=== PATIENT | male | born 1955 | race Caucasian/White ===

== ENCOUNTER 2017-08-25 17:25 | Emergency (ER) | payer MEDICAID ==
[~2017-08-25] VITALS: Ht 177.8 cm; Wt 76.7 kg
[~2017-08-25 17:25] MED LIST: ASPIR 8181 MG PO; ASPIRIN325 PO; ASPIRIN81 M2 PO; CIPRO500 MG PO; DUONEB 2.5-0.5 M3 ML INH; FLOMAX0.4 MG PO; GLUCOPHAGE1000 MG PO; HUMALOG100 UNIT/1 SUBQ; LANTUS SUBQ; LANTUS100 UNIT/M SUBQ; LISINOPRIL10 MG PO; LOPRESSOR25 PO; LOPRESSOR50 PO; METFORMIN HCL500 MG PO; MIRALAX17 GM PO; NEURONTIN 300300 M1 PO; NORCO 5-325 TA1 EACH PO; NOVOLIN 70100 UNIT/5 SQ; PLAVIX 75 MG TA75 M1 PO; PLAVIX 75 MG TA75 MG PO; PREDNISONE 20 M20 M1 PO; PRINIVIL10 MG PO; PROTONIX40 M2 PO; SERTRALINE HCL50 MG PO; TRAMADOL 50 MG50 MG PO; ULTRAM 50MG TAB50 MG PO; XARELTO15 MG PO; ZOCOR20 MG PO; ZOFRAN ODT4 MG DISSOLVE; ZOFRAN ODT4 MG PO; ZOLOFT25 MG PO
[2017-08-25] MEDS ORDERED: BACTRIM DS TAB1 EACH PO (17:57)
[2017-08-25] MEDS ORDERED: FLOMAX0.4 MG PO (17:57)
[2017-08-25] MEDS ORDERED: PREDNISONE 20 M20 MG PO (18:00)
[2017-08-25] MEDS ORDERED: METOPROLOL TART25 MG PO (18:00)
[2017-08-25] MEDS ORDERED: ZOLOFT25 MG PO (18:00)
[2017-08-25 18:15] VITALS: BP 124/80
== END 2017-08-25 18:00 | disposition home or self-care (01) ==
LOC: M.ERS 17:25
DX: L30.9 Dermatitis, unspecified (principal)

== ENCOUNTER 2017-09-05 07:26 | Emergency (ER) | payer MEDICAID ==
[~2017-09-05] VITALS: Ht 177.8 cm; Wt 72.6 kg
[~2017-09-05 07:26] MED LIST changes: +BACTRIM DS TAB1 EACH PO; +METOPROLOL TART25 MG PO; +PREDNISONE 20 M20 MG PO
[2017-09-05] MEDS ORDERED: ASPIR 8181 MG PO (07:47)
[2017-09-05] MEDS ORDERED: LANTUS SOL100 UNIT/1 INJECTION (07:47)
[2017-09-05] MEDS ORDERED: DUONEB 2.5-0.5 M3 ML INH (08:03)
[2017-09-05] MEDS ORDERED: LOPRESSOR25 PO (08:03)
[2017-09-05] MEDS ORDERED: HUMALOG KW100 UNIT/1 SUBQ (08:03)
[2017-09-05] MEDS ORDERED: ASPIR 8181 M1 PO (08:03)
[2017-09-05 08:25] VITALS: BP 137/79
== END 2017-09-05 08:25 | disposition home or self-care (01) ==
LOC: M.ERS 07:26
DX: E11.9 Type 2 diabetes mellitus without complications (principal); J44.9 Chronic obstructive pulmonary disease, unspecified; I10 Essential (primary) hypertension; I25.10 Atherosclerotic heart disease of native coronary artery without angina pectoris; E78.00 Pure hypercholesterolemia, unspecified; F17.200 Nicotine dependence, unspecified, uncomplicated; Z95.5 Presence of coronary angioplasty implant and graft; Z88.5 Allergy status to narcotic agent; Z88.0 Allergy status to penicillin; Z91.041 Radiographic dye allergy status; Z91.040 Latex allergy status; Z88.8 Allergy status to other drugs, medicaments and biological substances; Z88.6 Allergy status to analgesic agent; Z79.4 Long term (current) use of insulin

== ENCOUNTER 2018-10-01 19:32 | Inpatient (IN) | payer MEDICAID ==
[~2018-10-01] VITALS: Ht 180.3 cm; Wt 71.7 kg
[~2018-10-01 19:32] MED LIST changes: +ASPIR 8181 M1 PO; +HUMALOG KW100 UNIT/1 SUBQ; +LANTUS SOL100 UNIT/1 INJECTION
[2018-10-01 19:35] VITALS: BP 154/64
[2018-10-01] MEDS ORDERED: VENTOLIN HFA 1818 GM INH (19:47)
[2018-10-01 19:55] LABS: ABSOLUTE BASOPHILS 0.2 thou/uL (0.0-0.2); ABSOLUTE EOSINOPHILS 0.3 thou/uL (0.0-0.7); ABSOLUTE LYMPHOCYTES 2.3 thou/uL (0.8-5.3); ABSOLUTE MONOCYTES 0.5 thou/uL (0.0-1.2); ABSOLUTE NEUTROPHILS 4.6 thou/uL (1.6-8.1); BASOPHILS 2.1 %; EOSINOPHILS 3.9 %; HEMATOCRIT 32.3 % (42.0-52.0); HEMOGLOBIN 10.1 gm/dL (14.0-18.0); LYMPHOCYTES 29.3 %; MCH 22.9 pg (26.0-34.0); MCHC 31.4 g/dL (28.0-37.0); MCV 73.1 fL (80.0-100.0); NUCLEATED RBCS 0 /100WBC; PLATELET COUNT* 473 thou/uL (150-400); POLYS 58.7 %; RBC 4.42 mil/uL (4.50-6.00); RDW-CV 18.4 % (10.5-14.5); WBC 7.8 thou/uL (4.0-11.0)
[2018-10-01 20:00] VITALS: BP 124/56
[2018-10-01 20:18] LABS: CALCIUM 8.7 mg/dL (8.5-10.1); CREATININE 0.9 mg/dL (0.6-1.3); POTASSIUM 4.6 mmol/L (3.5-5.1)
[2018-10-01 20:27] LABS: PROTIME 10.7 Seconds (9.20-11.50)
[2018-10-01 20:28] LABS: ALBUMIN 2.9 g/dL (3.4-5.0); TOTAL BILIRUBIN 0.2 mg/dL (<0.1-1.0); TOTAL PROTEIN 6.9 g/dL (6.4-8.2)
[2018-10-01 20:51] LABS: OVALOCYTES Occasional
[2018-10-01 20:52] LABS: ANISOCYTOSIS 1+
[2018-10-01 20:53] LABS: HYPOCHROMASIA 2+; MICROCYTES 1+
[2018-10-01 20:54] LABS: PLATELET ESTIMATE INCREASED
[2018-10-01 21:51] LABS: URINE BILIRUBIN NEGATIVE (Negative); URINE BLOOD NEGATIVE (Negative); URINE CLARITY CLEAR; URINE COLOR YELLOW; URINE GLUCOSE-RANDOM 3+ (Negative); URINE KETONES NEGATIVE (Negative); URINE LEUKOCYTES-REFLEX NEGATIVE (Negative); URINE NITRITE-REFLEX NEGATIVE (Negative); URINE PROTEIN NEGATIVE (Negative); URINE SPECIFIC GRAVITY <= 1.005 (1.005-1.030); URINE UROBILINOGEN 0.2 E.U./dl (0.2-1.0)
[2018-10-01 22:36] VITALS: BP 134/47
[2018-10-01 23:00] VITALS: BP 124/56
[2018-10-02 04:00] VITALS: BP 123/53
[2018-10-02 08:08] VITALS: BP 99/42
[2018-10-02 09:55] LABS: CHOLESTEROL 104 mg/dL (<200); HDL CHOLESTEROL 40 mg/dL (>40); LDL CHOLESTEROL 48 mg/dL (<100); SERUM ASSESSMENT Clear; TC:HDL 2.6 Ratio (Not establshd); TRIGLYCERIDE 84 mg/dL (<150); VLDL 17 mg/dL (<40)
--- NOTE | 2018-10-02 10:34 | EKG ---
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 : 1955 Requested By: Elida Naik Order Number: [id number] MD: Julio Olivia Measurements Intervals [place] Rate: 92 P: 88 AL: 187 QRS: 72 QRSD: 92 T: 88 QT: 391 QTc: 484 Interpretive Statements Sinus rhythm Consider anterior infarct Borderline repolarization abnormality Compared to ECG 02/19/2017 20:30:47 Myocardial infarct finding now present ST (T wave) deviation persists Electronically Signed On 10-02-2018 10:33:51 CDT by Julio Olivia [email or web address] <ELECTRONICALLY SIGNED> By: Julio Olivia MD, [facility] 10/02/18 1033 193 1936 Julio Olivia MD, [facility] /EPI
[2018-10-02 12:13] VITALS: BP 122/53
[2018-10-03 02:06] LABS: GLYCOHEMOGLOBIN (HGB A1C) 13.2 % (4.8-5.6)
== END 2018-10-02 13:27 | disposition left against medical advice (07) | DRG 302 ==
LOC: M.ERS 19:32 → M.TBA-ER 21:35 → M.2W 23:00
PROVIDERS: Emergency Medicine; Internal Medicine; Registered Nurse; ADMIT Internal Medicine
DX: I25.119 Atherosclerotic heart disease of native coronary artery with unspecified angina pectoris (principal); J96.01 Acute respiratory failure with hypoxia; J15.6 Pneumonia due to other Gram-negative bacteria; J44.0 Chronic obstructive pulmonary disease with (acute) lower respiratory infection; J44.1 Chronic obstructive pulmonary disease with (acute) exacerbation; I10 Essential (primary) hypertension; E78.5 Hyperlipidemia, unspecified; E11.65 Type 2 diabetes mellitus with hyperglycemia; F41.9 Anxiety disorder, unspecified; F17.290 Nicotine dependence, other tobacco product, uncomplicated; Z53.21 Procedure and treatment not carried out due to patient leaving prior to being seen by health care provider; Z91.14 Patient's other noncompliance with medication regimen; I25.2 Old myocardial infarction; Z95.5 Presence of coronary angioplasty implant and graft; Z98.1 Arthrodesis status; Z79.02 Long term (current) use of antithrombotics/antiplatelets; Z79.4 Long term (current) use of insulin; Z79.82 Long term (current) use of aspirin; Z79.899 Other long term (current) drug therapy; Z88.5 Allergy status to narcotic agent; Z88.0 Allergy status to penicillin; Z88.8 Allergy status to other drugs, medicaments and biological substances; Z91.041 Radiographic dye allergy status; Z91.040 Latex allergy status

== ENCOUNTER 2018-10-04 17:33 | Emergency (ER) | payer MEDICAID ==
[~2018-10-04] VITALS: Ht 172.7 cm; Wt 71.2 kg
[~2018-10-04 17:33] MED LIST changes: +VENTOLIN HFA 1818 GM INH
[2018-10-04] MEDS ORDERED: TOPROL XL25 MG PO (17:44)
[2018-10-04 18:31] LABS: ABSOLUTE EOSINOPHILS 0.2 thou/uL (0.0-0.7); ABSOLUTE LYMPHOCYTES 1.8 thou/uL (0.8-5.3); ABSOLUTE MONOCYTES 0.3 thou/uL (0.0-1.2); ABSOLUTE NEUTROPHILS 5.1 thou/uL (1.6-8.1); BASOPHILS 0.2 %; EOSINOPHILS 3.1 %; HEMOGLOBIN 9.4 gm/dL (14.0-18.0); LYMPHOCYTES 24.1 %; MCH 22.8 pg (26.0-34.0); MCHC 31.4 g/dL (28.0-37.0); MCV 72.6 fL (80.0-100.0); MONOCYTES 4.4 %; MPV 7.7 fl. (7.2-11.1); NUCLEATED RBCS 0 /100WBC; PLATELET COUNT* 468 thou/uL (150-400); POLYS 68.2 %; RBC 4.13 mil/uL (4.50-6.00); RDW-CV 18.1 % (10.5-14.5); WBC 7.4 thou/uL (4.0-11.0)
[2018-10-04 18:42] LABS: ANION GAP 10 mmol/L (7-16); BUN 8 mg/dL (7-18); CALCIUM 8.5 mg/dL (8.5-10.1); CHLORIDE 99 mmol/L (98-107); CO2 27 mmol/L (21-32); CREATININE 0.9 mg/dL (0.6-1.3); GLUCOSE 497 mg/dL (70-99); SODIUM 136 mmol/L (136-145)
[2018-10-04 18:47] LABS: PROTIME 10.6 Seconds (9.20-11.50)
[2018-10-04 18:54] LABS: ALBUMIN 2.9 g/dL (3.4-5.0); ALKALINE PHOSPHATASE 114 U/L (46-116); LIPASE 95 U/L (73-393); NT-PRO BRAIN NAT PEPTIDE 2000 pg/mL (<300); SGOT 7 U/L (15-37); SGPT 17 U/L (30-65); TOTAL BILIRUBIN 0.3 mg/dL (<0.1-1.0); TOTAL PROTEIN 6.6 g/dL (6.4-8.2); TROPONIN-I LEVEL <0.06 ng/mL (<0.06)
[2018-10-04 18:57] LABS: OVALOCYTES 1+
[2018-10-04 18:58] LABS: ANISOCYTOSIS 1+; MICROCYTES 1+; PLATELET ESTIMATE INCREASED
[2018-10-04 18:59] LABS: POIKILOCYTOSIS 1+
[2018-10-04 19:00] LABS: HYPOCHROMASIA 2+
[2018-10-04] MEDS ORDERED: PREDNISONE 20 M20 M1 PO (19:19)
[2018-10-04] MEDS ORDERED: LEVAQUIN 500 M500 MG PO (19:19)
[2018-10-04] MEDS ORDERED: PERCOCET 5-3251 EACH PO (19:19)
[2018-10-04 20:04] VITALS: BP 142/59
--- NOTE | 2018-10-06 11:37 | EKG ---
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: NATALEE : 1955 Requested By: Sherly Cruz Order Number: [id number] MD: Leonardo Littlejohn Measurements Intervals [place] Rate: 100 P: 102 IN: 185 QRS: 58 QRSD: 82 T: 186 QT: 321 QTc: 414 Interpretive Statements Sinus tachycardia Ventricular premature complex Nonspecific repol abnormality, lateral leads Compared to ECG 10/01/2018 19:36:43 Ventricular premature complex(es) now present Sinus rhythm no longer present Myocardial infarct finding no longer present Electronically Signed On 10-06-2018 11:37:14 CDT by Leonardo Littlejohn [email or web address] <ELECTRONICALLY SIGNED> By: Leonardo Littlejohn MD, FAC 10/06/18 1137 1737 173 Leonardo Littlejohn MD, [facility] /EPI
== END 2018-10-04 20:06 | disposition home or self-care (01) ==
LOC: M.ERS 17:33
PROVIDERS: Personal Emergency Response Attendant
DX: J18.9 Pneumonia, unspecified organism (principal); F17.220 Nicotine dependence, chewing tobacco, uncomplicated; I10 Essential (primary) hypertension; E11.9 Type 2 diabetes mellitus without complications; E78.00 Pure hypercholesterolemia, unspecified; I25.10 Atherosclerotic heart disease of native coronary artery without angina pectoris; E78.5 Hyperlipidemia, unspecified; J44.9 Chronic obstructive pulmonary disease, unspecified; Z79.4 Long term (current) use of insulin; Z88.8 Allergy status to other drugs, medicaments and biological substances; Z88.5 Allergy status to narcotic agent; Z91.041 Radiographic dye allergy status; Z88.4 Allergy status to anesthetic agent; Z88.6 Allergy status to analgesic agent; Z91.040 Latex allergy status; Z88.0 Allergy status to penicillin; Z91.048 Other nonmedicinal substance allergy status

== ENCOUNTER 2018-10-31 17:12 | Inpatient (IN) | payer MEDICAID ==
[~2018-10-31] VITALS: Ht 175.3 cm; Wt 74.8 kg
[~2018-10-31 17:12] MED LIST changes: +LEVAQUIN 500 M500 MG PO; +PERCOCET 5-3251 EACH PO; +TOPROL XL25 MG PO
[2018-10-31 17:16] VITALS: BP 143/78
[2018-10-31] MEDS ORDERED: LIPITOR10 MG PO (17:21)
[2018-10-31 17:47] LABS: ABSOLUTE BASOPHILS 0.1 thou/uL (0.0-0.2); ABSOLUTE EOSINOPHILS 0.2 thou/uL (0.0-0.7); ABSOLUTE LYMPHOCYTES 1.7 thou/uL (0.8-5.3); ABSOLUTE MONOCYTES 0.4 thou/uL (0.0-1.2); ABSOLUTE NEUTROPHILS 3.7 thou/uL (1.6-8.1); BASOPHILS 1.4 %; EOSINOPHILS 2.6 %; HEMATOCRIT 34.1 % (42.0-52.0); HEMOGLOBIN 10.3 gm/dL (14.0-18.0); LYMPHOCYTES 28.7 %; MCH 21.5 pg (26.0-34.0); MCHC 30.2 g/dL (28.0-37.0); MCV 71.2 fL (80.0-100.0); MONOCYTES 5.8 %; MPV 7.9 fl. (7.2-11.1); NUCLEATED RBCS 0 /100WBC; PLATELET COUNT* 523 thou/uL (150-400); POLYS 61.5 %; RBC 4.79 mil/uL (4.50-6.00); RDW-CV 18.9 % (10.5-14.5); WBC 6.1 thou/uL (4.0-11.0)
[2018-10-31 18:03] LABS: ANION GAP 7 mmol/L (7-16); BUN 6 mg/dL (7-18); CALCIUM 8.7 mg/dL (8.5-10.1); CHLORIDE 94 mmol/L (98-107); CO2 29 mmol/L (21-32); POTASSIUM 4.4 mmol/L (3.5-5.1); SODIUM 130 mmol/L (136-145)
[2018-10-31 18:09] LABS: GLUCOSE 668 mg/dL (70-99)
[2018-10-31 18:20] LABS: ALBUMIN 3.3 g/dL (3.4-5.0); ALKALINE PHOSPHATASE 146 U/L (46-116); LIPASE 140 U/L (73-393); MAGNESIUM 1.7 mg/dL (1.8-2.4); NT-PRO BRAIN NAT PEPTIDE 1267 pg/mL (<300); SGOT 8 U/L (15-37); SGPT 20 U/L (30-65); TOTAL BILIRUBIN 0.4 mg/dL (<0.1-1.0); TROPONIN-I LEVEL <0.06 ng/mL (<0.06)
[2018-10-31 18:32] LABS: BE 0.8 mmol/L (-2 to +3); PCO2 46.9 mmHg (35.0-45.0); PO2 73.7 mmHg (75.0-100.0); pH 7.369 (7.340-7.450)
[2018-10-31] MEDS ORDERED: FLOMAX0.4 MG PO (18:39)
[2018-10-31] MEDS ORDERED: ASPIRIN81 M2 PO (18:40)
[2018-10-31 19:06] LABS: MICROCYTES 2+; OVALOCYTES Occasional
[2018-10-31 19:07] LABS: ANISOCYTOSIS 1+
[2018-10-31 19:08] LABS: HYPOCHROMASIA 1+; PLATELET ESTIMATE INCREASED
[2018-10-31 20:11] VITALS: BP 122/34
[2018-10-31 20:40] VITALS: BP 118/68
[2018-11-01 01:04] VITALS: BP 113/72
--- NOTE | 2018-11-01 01:47 | NUR ---
RECEIVED PHONECALL FROM AFTER HOURS RADIOLOGY SERVICE, RESULTS INTERPRETED AND SENT IN VIA FAX BY JEREMIE. DR SOSA NOTIFIED OF RESULTS.
[2018-11-01 04:17] VITALS: BP 121/52
[2018-11-01 04:56] LABS: ALBUMIN 2.9 g/dL (3.4-5.0); ALKALINE PHOSPHATASE 124 U/L (46-116); ANION GAP 5 mmol/L (7-16); BUN 7 mg/dL (7-18); CALCIUM 8.2 mg/dL (8.5-10.1); CHLORIDE 103 mmol/L (98-107); CHOLESTEROL 90 mg/dL (<200); CO2 29 mmol/L (21-32); CREATININE 0.8 mg/dL (0.6-1.3); GLUCOSE 244 mg/dL (70-99); HDL CHOLESTEROL 33 mg/dL (>40); LDL CHOLESTEROL 42 mg/dL (<100); POTASSIUM 4.2 mmol/L (3.5-5.1); SGOT 11 U/L (15-37); SGPT 16 U/L (30-65); SODIUM 137 mmol/L (136-145); TC:HDL 2.7 Ratio (Not establshd); TOTAL BILIRUBIN 0.3 mg/dL (<0.1-1.0); TOTAL PROTEIN 6.4 g/dL (6.4-8.2); TRIGLYCERIDE 75 mg/dL (<150); VLDL 15 mg/dL (<40)
[2018-11-01 04:57] LABS: SERUM ASSESSMENT Clear
--- NOTE | 2018-11-01 07:52 | NUR ---
PT RECIEVED FROM ED. ALERT AND ORIENTED X4. CALL LIGHT WITHIN REACH AND BED IN LOW POSITION. SAT MAINTAINED IN O2. C/O PAIN, MEDICATION GIVEN PER EMAR. PT HAD LFT SIDED WEAKNESS, PHYSICIAN INFORMED, ORDERS RECIEVED AND IMPLEMENTED. NIH DONE AND CHARTED. EKG CHANGES NOTED, PHYSICIAN NOTIFIED NO ORDERS RECIEVED. HOURLY ROUNDING DONE FOR PT SAFETY.
[2018-11-01 08:02] VITALS: BP 96/57
--- NOTE | 2018-11-01 08:58 | EKG ---
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: Trever MILLER : 1955 Requested By: Kira Sepulveda Order Number: [id number] Helen MD: Austin Jones Measurements Intervals [place] Rate: 107 P: 87 NV: 184 QRS: 80 QRSD: 93 T: 42 QT: 344 QTc: 459 Interpretive Statements Sinus tachycardia Nonspecific repol abnormality, lateral leads Compared to ECG 10/04/2018 17:37:09 Ventricular premature complex(es) no longer present Electronically Signed On 11-01-2018 8:57:49 CDT by Austin Jones [email or web address] <ELECTRONICALLY SIGNED> By: Austin Jones MD, [facility] 11/01/18 0857 1716 1716 Austin Jones MD, [facility] /EPI
--- NOTE | 2018-11-01 09:00 | EKG ---
[place] [address] ELECTROCARDIOGRAM REPORT Name: KAMRYN MCNALLY Room: [address] ADM IN .R.#: [id number] Admission: 10/31/18 Attend Phys: Roger Vann Discharge: Date of : 53 Report #: [id number] THIS REPORT FOR: //name// [facility] Test Date: 2018-10-31 Test Time: 22:16:10 Pat Name: KAMRYN MCNALLY Department: Room: [facility] Gender: Mop Maker: ALFRED : 1955 Requested By: Reno Chiang Order Number: [id number] MD: Austin Jones Measurements Intervals [place] Rate: 87 P: 75 DC: 179 QRS: 73 QRSD: 93 T: 160 QT: 393 QTc: 473 Interpretive Statements Sinus rhythm Borderline repolarization abnormality Baseline wander in lead(s) III,V1 Electronically Signed On 11-01-2018 9:00:28 CDT by Austin Jones [email or web address] <ELECTRONICALLY SIGNED> By: Austin Jones MD, [facility] 11/01/18 09 15 15 Austin Jones MD, FACC /EPI
--- NOTE | 2018-11-01 09:02 | EKG ---
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
--- NOTE | 2018-11-01 10:28 | NUR ---
PT LEFT AMA AT 0905 THIS AM. ATTEMPTED TO EDUCATE PT ON NEED FOR HOSPITALIZATION AND DANGERS OF LEAVING INCLUDING WORSONING OF SYMPTOMS OF STROKE AND BLOOD GLUCOSE AND THE POSSIBILITY OF R/T IT. PT WAS NOT WILLING TO LISTEN AND INSISTED HE WAS LEAVING. CHARGE NURSE TAYLOR NOTIFIED AND SPOKE WITH PT R/T DANGERS OF LEAVING ALSO. DR COLLAZO CAME TO TALK WITH PT BUT HE REFUSED TO STAY TO SPEAK WITH HIM. IV ACCESS X2 REMOVED. PT LEFT AMBULATORY STATING THAT HE HAD A RIDE. ESCORTED TO MAIN ENTRANCE BY DENICE ROSALES.
== END 2018-11-01 09:00 | disposition left against medical advice (07) | DRG 313 ==
LOC: M.ERS 17:12 → M.TBA-ER 18:33 → M.2W 20:21
PROVIDERS: Emergency Medicine Emergency Medical Services; ADMIT Internal Medicine
DX: R07.9 Chest pain, unspecified (principal); J44.9 Chronic obstructive pulmonary disease, unspecified; E11.9 Type 2 diabetes mellitus without complications; E78.00 Pure hypercholesterolemia, unspecified; I25.10 Atherosclerotic heart disease of native coronary artery without angina pectoris; Z53.21 Procedure and treatment not carried out due to patient leaving prior to being seen by health care provider; E78.5 Hyperlipidemia, unspecified; I10 Essential (primary) hypertension; I25.2 Old myocardial infarction; Z95.5 Presence of coronary angioplasty implant and graft; Z88.0 Allergy status to penicillin; Z88.8 Allergy status to other drugs, medicaments and biological substances; Z88.6 Allergy status to analgesic agent; Z91.041 Radiographic dye allergy status; Z91.040 Latex allergy status

== ENCOUNTER 2018-12-02 19:20 | Inpatient (IN) | payer MEDICAID ==
[~2018-12-02] VITALS: Ht 177.8 cm; Wt 70.2 kg
--- NOTE | ~2018-12-02 | CON ---
[address] [address] CONSULTATION Name: KAMRYN MCNALLY Room: [address] ADM IN M.R.#: [id number] Admission: 12/02/18 Attend Phys: Kamryn Wolfe MD Discharge: Date of : 53 Report #: [id number] THIS REPORT FOR: //name// CC: KARLI physician/PCP Kamryn Wolfe HISTORY OF PRESENT ILLNESS: A 62-year-old male admitted through the ED for chest pain, radiating to the left arm. Podiatry was consulted for possible osteomyelitis to the left great toe with concomitant ulceration to the lateral fifth MTP joint. Recent catheterization found to have patent cardiac stents. Recent CTAs of neck show greater than 90% stenosis of the left ICA. Arterial Doppler ultrasound shows SFA disease with roughly 50% stenosis bilaterally. He relates significant pain to the right foot, denies injury. He has had prior triple arthrodesis with 3 retained compression honey. Denies fevers, chills, nausea or malaise. Continues to have some midsternal chest pain. He smokes a pipe. I reviewed his medications and allergies in the EMR. He is on parenteral vancomycin and ceftriaxone with good tolerance. LABORATORY DATA: WBC 10.9, RBC 3.91, hemoglobin 8.1, hematocrit 26.5, and platelets 384. BUN 19, creatinine 0.8, and glucose 305. PHYSICAL EXAMINATION: Temperature 98.1, pulse 84, respirations 18, and blood pressure 87/53. The left great toe and distal forefoot is exquisitely painful to the touch. The nail is missing from the left hallux with no visible open wound to the nail bed or distal hallux. No expressible drainage from the nail bed, no granulation or violation of the epithelium. There is full thickness ulceration to the left lateral fifth MTP, roughly 3 cm in diameter with red granular base with some overlying slough and low grade inflammation to the wound periphery. No exposed bone or tendon. Faintly palpable dorsalis pedis and posterior tibial pulses bilaterally. No pallor, cyanosis, gangrene or signs of acute ischemia. IMAGING DATA: I reviewed x-rays, which reveal longitudinal radiolucency through the distal phalanx with no osteolysis. IMPRESSION: Type 2 diabetes mellitus with peripheral arterial disease, carotid stenosis, diabetic foot ulceration, possible osteomyelitis to the great toe. PLAN: I do not recommend any surgical intervention at this point. The patient requires further evaluation and treatment of this carotid artery disease as well as both lower extremities. I am not convinced he has osteomyelitis to the great toe, although I would recommend MRI in near future for more information. At present, I recommend daily wound care to the left [place] [address] CONSULTATION Name: KAMRYN MCNALLY Room: [address] IN M.R.#: [id number] Admission: 12/02/18 Attend Phys: Kamryn Wolfe MD Discharge: Date of : 53 Report #: [id number] Casie Nunez ABD and Mónica victor. He may ambulate in a surgical shoe for short distances and transfers as tolerated. By: 1738 [id number] Israel DPM /nt
[~2018-12-02 19:20] MED LIST changes: +LIPITOR10 MG PO
[2018-12-02 19:23] VITALS: BP 123/54
[2018-12-02 20:12] LABS: ABSOLUTE BASOPHILS 0.1 thou/uL (0.0-0.2); ABSOLUTE EOSINOPHILS 0.4 thou/uL (0.0-0.7); ABSOLUTE LYMPHOCYTES 1.8 thou/uL (0.8-5.3); ABSOLUTE MONOCYTES 0.5 thou/uL (0.0-1.2); ABSOLUTE NEUTROPHILS 2.8 thou/uL (1.6-8.1); BASOPHILS 1.5 %; EOSINOPHILS 7.2 %; HEMATOCRIT 28.8 % (42.0-52.0); HEMOGLOBIN 8.6 gm/dL (14.0-18.0); LYMPHOCYTES 32.4 %; MCH 20.4 pg (26.0-34.0); MCV 68.1 fL (80.0-100.0); MONOCYTES 8.9 %; MPV 7.2 fl. (7.2-11.1); NUCLEATED RBCS 0 /100WBC; PLATELET COUNT* 420 thou/uL (150-400); RBC 4.23 mil/uL (4.50-6.00); RDW-CV 19.3 % (10.5-14.5); WBC 5.7 thou/uL (4.0-11.0)
[2018-12-02 20:26] LABS: APTT 23.7 Seconds (25.0-31.3); PROTIME 10.3 Seconds (9.20-11.50)
[2018-12-02 20:29] LABS: CALCIUM 8.2 mg/dL (8.5-10.1); CREATININE 0.8 mg/dL (0.6-1.3); POTASSIUM 4.2 mmol/L (3.5-5.1)
[2018-12-02 20:37] LABS: ALBUMIN 2.8 g/dL (3.4-5.0); CK-MB MASS 4.9 ng/mL (<0.5-3.6); MAGNESIUM 1.6 mg/dL (1.8-2.4); TOTAL BILIRUBIN 0.2 mg/dL (<0.1-1.0); TOTAL PROTEIN 6.4 g/dL (6.4-8.2); TROPONIN-I LEVEL 0.06 ng/mL (<0.06)
[2018-12-02 20:44] LABS: OVALOCYTES 1+; PLATELET ESTIMATE ADEQUATE
[2018-12-02 20:45] LABS: HYPOCHROMASIA 2+
[2018-12-02 20:46] LABS: ANISOCYTOSIS 1+; MICROCYTES 3+
[2018-12-02 22:13] VITALS: BP 109/68
[2018-12-03] VITALS (7 sets, daily range): BP systolic 99–136; BP diastolic 45–88
--- NOTE | 2018-12-03 06:58 | NUR ---
PT TO FLOOR APPROX 2220 AND ASSUMED CARE, ASSESSMENT COMPLETED CHARTED, APPROX 0430 PT COMPLAINED OF UNCONTROLLABLE CHEST PAIN, EKG DONE AND TROP DRAW, NEW ORDERS RECIEVED. PARTIAL RELIEF NOTED WITH PT. SEE MAR. SEE CHARTING. FALL PRECAUTIONS IN PLACE. HOURLY ROUNDING FOR SAFETY.
[2018-12-03 10:05] LABS: CALCIUM 8.8 mg/dL (8.5-10.1); POTASSIUM 4.8 mmol/L (3.5-5.1)
--- NOTE | 2018-12-03 10:59 | EKG ---
[place] [address] ELECTROCARDIOGRAM REPORT Name: KAMRYN MCNALLY Room: [address] ADM IN .R.#: [id number] Admission: 12/02/18 Attend Phys: Kamryn Wolfe MD Discharge: Date of : 53 Report #: [id number] THIS REPORT FOR: //name// [facility] ED Test Date: 2018-12-02 Test Time: 19:26:05 Pat Name: KAMRYN MCNALLY Department: Room: [facility] Gender: M Floor Director: MO : 1955 Requested By: Presley Bahena Order Number: [id number] MD: Nam Mora Measurements Intervals [place] Rate: 98 P: 83 [place]: 191 QRS: -35 QRSD: 137 T: 92 QT: 395 QTc: 505 Interpretive Statements Sinus rhythm Multiple ventricular premature complexes Left bundle-branch block Compared to ECG 11/01/2018 06:18:37 No significant changes noted Electronically Signed On 12-03-2018 10:59:39 CDT by Nam Mora [email or web address] <ELECTRONICALLY SIGNED> By: Nam Mora MD, [facility] 12/03/18 1059 1926 25 Nam Mora MD, [facility] /EPI
--- NOTE | 2018-12-03 11:01 | EKG ---
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[employer] : 1955 Requested By: Kamryn Wolfe Order Number: [id number] Helen MD: Nam Mora Measurements Intervals [place] Rate: 102 P: 92 CT: 43 QRS: 26 QRSD: 149 T: 156 QT: 410 QTc: 535 Interpretive Statements Sinus tachycardia Ventricular trigeminy Left bundle-branch block Compared to ECG 11/01/2018 06:18:37 Sinus rhythm no longer present Electronically Signed On 12-03-2018 11:01:43 CDT by Nam Mora [email or web address] <ELECTRONICALLY SIGNED> By: Nam Mora MD, [facility] 12/03/18 1101 0501 0501 Nam Mora MD, [facility] /EPI
--- NOTE | 2018-12-03 11:13 | NUR ---
ASSUMED PT CARE AT 0800, AOX4, IMPULSIVE. O2 SAT 90'S 2L NC. TRAC[address] ST,BBB ON TELE. PT COMPLAINS OF CHEST PAIN. MEDS GIVEN. PT BLOOD SUGAR CRITICAL, INSULIN GIVEN, FOR ACCU CHECK. PT NPO FOR HEART CATH. PT HAS WOUND ON L TOES, WOUND NURSE CONSULTED. C/D/I. VSS, AM ASSESSMENT CHARTED. HOURLY ROUNDING. CALL LIGHT WITHIN REACH. WILL CONTINUE TO MONITOR.
--- NOTE | 2018-12-03 11:15 | NUR ---
BRICK CHIMNEY BUILDER INFORMED OF THE NEED TO SEND A REFERRAL TO [facility]. D/C DAVID ATTEMPTED TO CONTACT ADMISSIONS AT [facility] AND LEFT A MESSAGE FOR ROSALINDA TO RETURN CALL TO DISCUSS ABILITY TO ACCEPT THE PATIENT. D/C POWER TECHNICIAN FAXED PATIENT'S FACESHEET, AND CLINICAL INFO TO ROSALINDA. NO PT/OT NOTES AVAILABLE TO SEND AT THIS TIME. CM WILL REMAIN AVAILABLE TO ASSIST AND FOLLOW NEEDED.
--- NOTE | 2018-12-03 11:22 | NUR ---
WOUND CARE NOTE: PT WAS SEEN TO ADDRESS WOUNDS TO LEFT FOOT. PT CURRENTLY BEING SEEN FOR CHEST PAIN. HE IS TO HAVE A CARDIAC CATH LATER TODAY. HE HAS A HX OF DIABETES, VASULAR DISEASE, PERIPHERAL NEUROPATHY, PNA. PT HAD BLOOD SUGARS >500 THIS AM AND IS BEING TREATED WITH INSULIN. PT HAS MULTIPLE DFU'S TO THE LEFT FOOT. ON THE OUTER PART OF THE FOOT THERE IS A FULL THICKNESS WOUND THAT MEASURES 1.7X1.1X0.2CM. THERE IS DRIED SLOUGH COVERING THE ENTIRE WOUND BED. THE MARLEEN WOUND IS DRY AND THE EDGES ARE WELL APPROXIMATED. THE 2ND TOE WOUND MEASURES 104X0.6X0.0CM. THERE IS DRIED SLOUGH AND SCABBING PRESENT. THE MARLEEN WOUND IS SLIGHTLY RED AND WARM TO THE TOUCH. THE 4TH TOE WOUND MEASURES 1.1X0.9X0.0 WITH DRIED SLOUGH AND THE MARLEEN WOUND IS SLIGHTLY RED AND WARM TO THE TOUCH. THE 5TH TOE WOUND MEASURES 1.1X1.0X0.0 WITH LARGE AMOUNT OF DRIED SLOUGH MATERIAL. THERE IS NO DRAINAGE NOTED. THE FOOT IS SLIGHTY SWOLLEN. THERE ARE 2 AREAS TO THE HEEL THAT ARE CALLUSED POSSIBLE FROM A HEALED DFU.BILAT LEGS HAVE MULTIPLE HEALING SCABS. THE PT STATES HE SITS OUTSIDE A LOT. AND THEN HE SCRATCHES AT HIS LEGS CAUSING SCABS. THESE DO APPEAR TO BE BUG BITES. THE PT DID C/O PAIN TO THE TOUCH. HE STATES HE WAS GOING TO [facility] UNTIL ABOUT 4 OR MORE MONTHS AGO. PT HAS NOT HAD ANY WC AT HOME FOR THE FOOT. 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 HE STATES IT SHOWED "INFECTION IN THE BONE" AND THAT HIS DRS TOLD HIM HE NEEDED IT "AMPUTATED". I ASKED THE PT IF HE WOULD BE WILLING TO HAVE OUR PODITRIST LOOK AT IT WHILE HE IS HERE AND HE WAS WILLING TO DO SO. DR MALDONADO NOTIFIED OF MY FINDINGS AND THE DISCUSSION WITH THE PT. NO CONSULT PLACED AT THIS TIME. ALL WOUNDS TO LEFT FOOT WASHED WITH WOUND CLEANSER, PATTED DRY. IN THE OUTER ASPECT OF THE FOOT AQUACEL AG PLACED WITH BOARDERED FOAM COVERING IT. THE 2ND, 4TH AND 5TH TOES COVERED WITH POTIFOAM AG. THE FOOT WAS COVERED WITH KERLIX AND NATALEE BANDAGE. BILAT LEGS WASHED WITH WOUND CLEANSER AND BARRIOR CREAM APPLIED TO BOTH. PT TOLEREATED THIS WELL WITH SMALL AMOUNT OF PAIN TO THE LEFT FOOT. PT EDUCATED TO KEEP LEFT FOOT ELEVATED ON A PILLOW. PT VERBALIZED UNDERSTANDING.
--- NOTE | 2018-12-03 11:47 | NUR ---
Pt is A&O but forgetful. Resides at home alone, states that he does not have a a support sx. Pt states that he has been struggling at home, unable to complete ADLs and IADLs. Pt wants to dc to a LTC facility, Pt states that he would like to dc to [facility], Pt states that he has been there before. Pt has a walker and cane at home. No home o2. DC land planner to contact [facility] to determine ability to accept. Pt did not want to discuss an alternate LTC, to be contacted if [facility] cannot accept. CM following.
--- NOTE | 2018-12-03 16:45 | CARD ---
[address] [address] CARDIAC CATH REPORT Name: KAMRYN MCNALLY Room: [address] IN .R.#: [id number] Admission: 12/02/18 Attend Phys: Kamryn Wolfe MD Discharge: Date of : 53 Report #: [id number] THIS REPORT FOR: //name// APPROVED REPORT Study performed: 12/03/2018 14:34:34 Patient Details The patient is a 62 year-old male Event Personnel Nam Mora Industrial Welder, Diane Azar RN RN, Julissa Pastor RN RN, Jayson Dias (Yani) Tom Chamberlain Brittany RN Monitor, Joi Johnston RTR Monitor Procedures Performed Art Access - R femoral artery* Procedure Narrative The patient was brought electively to the Cardiac Catheterization Laboratory and was prepped and draped in a sterile manner. A 6fr Ultimum Sheath sheath was inserted into the . Coronary angiography was performed using coronary diagnostic catheters. The right coronary system was accessed and visualized with a JR 4 6fr. catheter. The left coronary system was accessed and visualized with a JL 4 6fr. catheter. The left ventricle was accessed and visualized with a PC: Angled Pig 6fr catheter. The patient tolerated the procedure well and there were no complications associated with the procedure. Intraoperative Conscious Sedation Sedation start time: 1536 Case end Time: 1545 Versed 2 mg Dose: 827.09 mGy Contrast Type and Amount: Omnipaque 125 ml Coronary Angiography The patient's coronary anatomy is right dominant. Diagnostic Cath Left Main The left main is short and normal and trifurcates into an LAD, intermediate ramus and circumflex coronary arteries. LAD The left anterior descending coronary artery is 50% narrowed proximally and 40% narrowed in the midportion. [place] [address] CARDIAC CATH REPORT Name: KAMRYN MCNALLY Room: [address] IN .R.#: [id number] Admission: 12/02/18 Attend Phys: Kamryn Wolfe MD Discharge: Date of : 53 Report #: [id number] free of significant disease. Diagonal 1 The first diagonal branch is a large branched vessel with 20% plaquing proximally. Diagonal 2 The second diagonal branch is small in caliber and normal. Circumflex The circumflex coronary artery has widely patent stents from the proximal to midportion. Distally the circumflex is 40% narrowed. OM1 A fairly distal first obtuse marginal branch is normal. OM2 The more distal second obtuse marginal branch was normal. Right Coronary The right coronary artery has a widely patent stent proximally. The mid and distal vessel are free of significant disease. R PDA The PDA is free of significant disease. RPLV A moderate size branch and PDA is free of significant disease. Ramus The ramus intermedius has a widely patent stents in the ostial and proximal portion. The mid and distal vessel is free of significant disease. There is proximal 10% narrowing distally. A small branch of the radius has a 90% ostial stenosis. The ramus has circumflex/obtuse marginal distribution. Hemodynamics The aortic pressure is 118/57 mmHg with a mean of 83 mmHg. The left ventricular pressure is 115/15 mmHg with a mean of mmHg. The left ventricular end diastolic pressure is 33 mmHg. Conclusion 1. Three-vessel coronary artery disease as outlined above. 2. Widely patent stents in the ostial to proximal ramus, ostial to mid circumflex and proximal right coronary arteries. 3. 50% proximal and 40% mid LAD narrowing. 4. 40% distal circumflex narrowing. 5. Elevated left ventricular end-diastolic pressure consistent with acute diastolic heart failure. 6. Normal left ventricular systolic function. Recommendations 1. Continue medical management and aggressive risk factor modification. 2. Continue treatment for diastolic heart failure. <ELECTRONICALLY SIGNED> By: Nam Mora MD, [facility] 12/03/18 1644 1644 1644Micaddy Mora MD, FACC /INF
--- NOTE | 2018-12-03 18:31 | NUR ---
PT HAD HEART CATH TODAY. R GROIN D/C/I. PT DENIES PAIN AT THIS TIME. PT FOR NM LUNG SCAN VQ, US BILATERAL LOWER EXTREMITY, FOOT XRAY AND CHEST XRAY. PT O2 DROP TO 80'S WHEN SLEEP. O2 ADJUST TO 3L. PT IMPULSIVE. ANTIBIOTIC STARTED. L FOOT WOUND C/D/I. BED ALARM. CALL LIGHT WITHIN REACH. WILL CONTINUE TO MONITOR.
[2018-12-04 00:03] VITALS: BP 100/60
[2018-12-04 03:12] LABS: GLYCOHEMOGLOBIN (HGB A1C) 15.2 % (4.8-5.6)
[2018-12-04 04:00] VITALS: BP 109/64
[2018-12-04 05:44] LABS: CALCIUM 8.4 mg/dL (8.5-10.1); CREATININE 0.8 mg/dL (0.6-1.3); MAGNESIUM 1.9 mg/dL (1.8-2.4); POTASSIUM 4.6 mmol/L (3.5-5.1)
[2018-12-04 05:49] LABS: ABSOLUTE BASOPHILS 0.1 thou/uL (0.0-0.2); ABSOLUTE MONOCYTES 0.6 thou/uL (0.0-1.2); ABSOLUTE NEUTROPHILS 8.2 thou/uL (1.6-8.1); BASOPHILS 0.5 %; HEMATOCRIT 26.5 % (42.0-52.0); HEMOGLOBIN 8.1 gm/dL (14.0-18.0); LYMPHOCYTES 18.3 %; MCH 20.8 pg (26.0-34.0); MCHC 30.7 g/dL (28.0-37.0); MCV 67.8 fL (80.0-100.0); MONOCYTES 5.6 %; MPV 7.9 fl. (7.2-11.1); NUCLEATED RBCS 0 /100WBC; PLATELET COUNT* 384 thou/uL (150-400); POLYS 75.6 %; RBC 3.91 mil/uL (4.50-6.00); RDW-CV 19.1 % (10.5-14.5); WBC 10.9 thou/uL (4.0-11.0)
[2018-12-04 06:33] LABS: HYPOCHROMASIA 3+
[2018-12-04 06:34] LABS: OVALOCYTES 1+; TARGET CELLS 1+
[2018-12-04 06:35] LABS: PLATELET ESTIMATE ADEQUATE
--- NOTE | 2018-12-04 06:48 | NUR ---
PT IS ABLE TO COMMUNICATE HIS NEEDS TO STAFF WITH VERY MINOR DIFFICULTY; HE IS [id number]. PT CAN BE IMPULSIVE FUSSY AND IRRITABLE AT TIMES. HE HAS DENIED THE NEED FOR PAIN MEDICATION UP TO THIS TIME. RIGHT GROIN CATH SITE DRESSING IS C/D/I UP TO THIS TIME. BILATERAL LE ULTRASOUND TENTATIVELY SCHEDULED FOR TODAY. PODIATRY CONSULTED.
[2018-12-04 08:00] VITALS: BP 110/63
--- NOTE | 2018-12-04 08:35 | NUR ---
DISCHARGE PLANER RECIEVED A CALL FROM ROSALINDA WITH [facility] AND SHE INFORMS THAT THE FACILITY HAS DECIDED TO DECLINE ACCEPTANCE OF THE PATIENT DUE TO THE CIRCUMSTANCES THAT HE HAD LEFT THE FACILITY IN THE PAST. PER ROSALINDA 'THE PATIENT HAD ONLY STATED UNIL HE HAD RECEIVED HIS SCRIPT FOR OXYCODONE, AND LEFT THE FACILITY ATER THAT. THE PATIENT HAD ALSO INITIALLY ACTED IF HE COULD NOT WALK, BUT WALKED OUT OF THE BUILDING WITHOUT ANY ASSISTANCE THE DAY HE LEFT'. D/C BILLING CUSTOMER SERVICE REPRESENTATIVE WILL F/U WITH THE PATIENT TO DISCUSS THIS AND OTHER LTC OPTIONS. CM WILL REMAIN AVAILABLE TO ASSIST AND FOLLOW NEEDED.
[2018-12-04 11:30] VITALS: BP 87/53
--- NOTE | 2018-12-04 12:26 | NUR ---
Nutrition: Pt admitted with chest pain. Has wounds on Lt foot, to be amputated, per pt. He stated a lot of pain in foot. Seen for pressure ulcer risk. Wt: 148#. He stated his wt flustuates 140-170s and he doesn't know why. CHO controlled diet. BG 305, albumin 2.8. Pt agreed to Jeremy orange for wound healing. RD ordered it. Consider mild risk at this time. He is eating well.
--- NOTE | 2018-12-04 17:49 | NUR ---
PT UP IN ROOM WITH STEADY GAIT. ENCOURAGED PT TO AVOID WALKING ON FOOT UNLESS NECESSARY. PT TOLERATING PO WELL. IVF INFUSING. PAIN CONTROLLED WITH MEDS. PODIATRY AND VASCULAR CONSULT TODAY. NSR ON MONITOR THROUGHOUT SHIFT
[2018-12-04 20:04] VITALS: BP 109/66
[2018-12-05] VITALS (24 sets, daily range): BP systolic 54–138; BP diastolic 31–77
[2018-12-05 04:28] LABS: ABSOLUTE BASOPHILS 0.1 thou/uL (0.0-0.2); ABSOLUTE EOSINOPHILS 0.2 thou/uL (0.0-0.7); ABSOLUTE LYMPHOCYTES 2.8 thou/uL (0.8-5.3); ABSOLUTE MONOCYTES 0.4 thou/uL (0.0-1.2); ABSOLUTE NEUTROPHILS 5.1 thou/uL (1.6-8.1); BASOPHILS 1.3 %; EOSINOPHILS 2.8 %; HEMATOCRIT 26.2 % (42.0-52.0); HEMOGLOBIN 7.8 gm/dL (14.0-18.0); LYMPHOCYTES 32.1 %; MCHC 29.7 g/dL (28.0-37.0); MCV 67.4 fL (80.0-100.0); MONOCYTES 4.8 %; MPV 7.9 fl. (7.2-11.1); NUCLEATED RBCS 0 /100WBC; PLATELET COUNT* 361 thou/uL (150-400); RBC 3.89 mil/uL (4.50-6.00); RDW-CV 18.9 % (10.5-14.5); WBC 8.6 thou/uL (4.0-11.0)
[2018-12-05 04:49] LABS: CALCIUM 8.4 mg/dL (8.5-10.1); CREATININE 0.7 mg/dL (0.6-1.3); POTASSIUM 4.6 mmol/L (3.5-5.1)
--- NOTE | 2018-12-05 06:09 | NUR ---
PT IS ABLE TO COMMUNICATE HIS NEEDS TO STAFF WITHOUT DIFFICULTY. CURRENT PAIN MEDICATION REGIMEN HAS BEEN ADEQUATE FOR CONTROLLING HIS PAIN UP TO THIS TIME. VASCULAR SURGERY AND PODIATRY FOLLOWING RE LEFT FOOT.
[2018-12-05 06:46] LABS: PLATELET ESTIMATE ADEQUATE
[2018-12-05 06:48] LABS: ANISOCYTOSIS 1+; HYPOCHROMASIA 2+; MICROCYTES 2+; OVALOCYTES 1+; POLYCHROMASIA 1+
[2018-12-05 06:49] LABS: POIKILOCYTOSIS 2+
[2018-12-05 11:03] LABS: BE -0.9 mmol/L (-2 to +3); PCO2 48.4 mmHg (35.0-45.0); PO2 68.9 mmHg (75.0-100.0); pH 7.333 (7.340-7.450)
--- NOTE | 2018-12-05 12:10 | NUR ---
TRANSFER NOTE - THIS AM, PT FOUND TO HAVE O2 SAT OF 67% ON RA. TITRATED O2 UP TO 10L TO MAINTAIN O2 SAT ABOVE 90%. PT DENIES ANY SOA. OBTAIN BP AROUND 1150AM AND BP WAS 92/30. SPOKE WITH . TRANSFER TO ICU. REPORT GIVEN TO TAMMY MONTGOMERY. ALL BELONGINGS SENT WITH PT.
--- NOTE | 2018-12-05 12:57 | CON ---
[address] [address] CONSULTATION Name: KAMRYN MCNALLY Room: [address] ADM IN M.R.#: [id number] Admission: 12/02/18 Attend Phys: Kamryn Wolfe MD Discharge: Date of : 53 Report #: [id number] THIS REPORT FOR: //name// CC: FAM physician/PCP Kamryn Wolfe DATE OF SERVICE: 12/04/2018 INFECTIOUS DISEASE CONSULTATION ATTENDING PHYSICIAN: Kamryn Wolfe MD REASON FOR EVALUATION: Left great toe distal aspect chronic osteomyelitis. HISTORY OF PRESENT ILLNESS: Chart reviewed, patient examined. This is a 62-year-old man with known history of diabetes mellitus type 2 for a number of years, was admitted through the Emergency Room with fairly profound chest pain and discomfort. Does have vasculopathy, known coronary artery disease, previous stenting, also COPD, was evaluated and found in part to have a chronic ulceration involving the distal aspect of the left great toe, although he states the pain involves the entirety of the foot onto the leg, has been undergoing some degree of wound care. At some point, I believe it is recommended amputation due to peripheral vascular disease as well as a chronic nonhealing wound. It is not clear that he has had any fevers. Generally, he is uncomfortable. Doppler of the lower extremity does show compromised perfusion pending Vascular Surgery evaluation. He was empirically started on antimicrobials with vancomycin as well as ceftriaxone. ALLERGIES: Listed to CONTRAST DYE, PENICILLINS, NITROGLYCERIN, CODEINE, FENTANYL, TRAMADOL AND TORADOL. CURRENT MEDICATIONS: Include atorvastatin, insulin, hydrocodone, multivitamin, aspirin, clopidogrel, pantoprazole, vancomycin, tamsulosin, ascorbic acid, metoprolol, sertraline, ceftriaxone, gabapentin, ipratropium and albuterol inhaler, p.r.n. analgesics, antiemetics, anxiolytics. PAST MEDICAL HISTORY: As described above, diabetes mellitus type 2, insulin requiring, has known vasculopathy including coronary artery disease, peripheral vascular disease, previous history of noted abdominal aortic aneurysm. He has had acute [place], COPD, hyperlipidemia, hypertension. SOCIAL HISTORY: Nonsmoker, no ethanol, no illicit drug use. FAMILY HISTORY: Noncontributory. REVIEW OF SYSTEMS: Otherwise, unremarkable 10-[id number] CONSULTATION Name: KAMRYN MCNALLY Room: [address] [facility].#: [id number] Admission: 12/02/18 Attend Phys: Kamryn Wolfe MD Discharge: Date of : 53 Report #: [id number] exception of the above. PHYSICAL EXAMINATION: GENERAL: He is quite uncomfortable. He is mildly agitated. He appears chronically ill, undernourished. VITAL SIGNS: Temperature 98.1, pulse 84, respirations 18, blood pressure 187/53. SKIN: Warm, dry, no rashes. HEENT: Normocephalic. Extraocular muscles intact. NECK: Supple. LUNGS: Diminished breath sounds. HEART: Regular, some ectopy, has a soft systolic murmur. ABDOMEN: Mildly tender, slightly distended. There is no organomegaly. No peritoneal signs. EXTREMITIES: Left lower extremity has a dressing over his ____ covering his ankle onto his distal leg. GENITOURINARY: Deferred. RECTAL: Deferred. LABORATORY DATA: Blood cultures sterile thus far. Arterial Doppler showed diffuse mild atherosclerotic disease; right lower extremity, moderate atherosclerotic disease within the distal superficial femoral artery, approximately 50% stenosis; diffuse mild atherosclerotic disease of the left lower extremity; moderate atherosclerotic disease of proximal left superficial femoral roughly 50% stenosis. CBC: White count of 10.9, H and H 8.1 and 26.5, platelets of 384. Electrolytes: Sodium 141, potassium 4.6, chloride 103, bicarbonate is 30, anion gap of 8, BUN and creatinine 19 and 0.8. Plain film of the foot shows findings suggestive of osteomyelitis involving the first distal phalanx. Lactic acid of 1.9. ASSESSMENT: Chronic osteomyelitis involving the distal left great toe. At this point, we will continue empiric therapy and Vascular Surgery to evaluate. It is unlikely with antibiotics alone that we would correct this. Await their decision to see if it is reasonable to expect healing with minimal intervention or would need more drastic measures, consider hyperbaric oxygen as well. <ELECTRONICALLY SIGNED> By: Richy Floyd MD 12/05/18 1257 1509 [id number] Floyd MD /nt
[2018-12-05 13:50] LABS: URINE BILIRUBIN NEGATIVE (Negative); URINE BLOOD TRACE (Negative); URINE CLARITY CLEAR; URINE COLOR YELLOW; URINE GLUCOSE-RANDOM TRACE (Negative); URINE KETONES NEGATIVE (Negative); URINE LEUKOCYTES-REFLEX NEGATIVE (Negative); URINE NITRITE-REFLEX NEGATIVE (Negative); URINE PROTEIN NEGATIVE (Negative); URINE UROBILINOGEN 0.2 E.U./dl (0.2-1.0)
[2018-12-05 14:12] LABS: HEPATITIS B SURFACE AG Negative (Negative)
--- NOTE | 2018-12-05 14:53 | NUR ---
CONSULTED TO PLACE URGENT PICC FRO NEED FOR PRESSORS AND MULTIPLE INFUSIONS. CHART EVALUALTED AND CONCENT NOTED. SPOKE WITH PT RISK AND BENIFIT REVIEWED. VOICED UNDERSTANDING AND AGREED. RIGHT UPPER ARM ASSESSED WITH ULTRASOUND. RIGHT BASILIC IDENTIFIED AND NOTED TO BE WIDLEY PATENT. TRIPLE LUMAN POWER PICC PLACED PER PROTOCOL. INCLUDING ULTRASOUND GUIDANCE, MAX BARRIER PRECAUTIONS AND SHERLOCK 3CG TECHNOLOGY. GOOD BRISK BLOOD RETURN NOTED AND FLUSHED WITH EASE. UNABLE TO PRINT [employer] EKG STAT X-RAY ORDERED. X-RAY SHOWS TIP AT [facility] AND GOOD PLACEMENT. LINE RELEASED FOR USE TO VALENTINA MCCULLOUGH RN. TOLERATED WELL.
--- NOTE | 2018-12-05 16:16 | 2DMMODE ---
[place] [address] 2 D/M-MODE ECHOCARDIOGRAM Name: KAMRYN MCNALLY Room: 003[facility] IN [facility]#: [id number] Admission: 12/02/18 Attend Phys: Kamryn Wolfe, Discharge: Date of : 53 Date of Service: 12/05/18 1615 Report #: [id number] THIS REPORT FOR: //name// APPROVED REPORT Study performed: 12/05/2018 14:37:11 EXAM: Comprehensive 2D, Doppler, and color-flow Echocardiogram Patient Location: In-Patient Room #: 003 Status: routine BSA: 1.89 HR: 80 bpm BP: 97/31 mmHg Rhythm: NSR Other Information Study Quality: Good Indications Dyspnea Chest Pain 2D Dimensions IVSd: 10.52 (7-11mm) LVOT Diam: 21.51 (18-24mm) LVDd: 44.99 mm PWd: 8.37 (7-11mm) LVDs: 33.44 (25-40mm) Aortic Root: 37.89 mm Volumes Left Atrial Volume (Systole) LA ESV Index: 23.90 mL/m2 Aortic Valve AoV Peak Froy.: 0.97 m/s AO Peak Gr.: 3.76 mmHg LVOT Max P.58 mmHg AO Mean Gr.: 2.16 mmHg LVOT Mean P.61 mmHg LVOT Max V: 0.95 m/s AO V2 VTI: 18.89 cm LVOT Mean V: 0.57 m/s CHENTE (VTI): 3.75 cm2 LVOT V1 VTI: 19.47 cm Mitral Valve E/A Ratio: 1.08 MV Decel. Time: [address] [place] [address] 2 D/M-MODE ECHOCARDIOGRAM Name: KAMRYN MCNALLY Room: [address] IN M.R.#: [id number] Admission: 12/02/18 Attend Phys: Kamryn Wolfe, Discharge: Date of : 53 Date of Service: 12/05/18 1615 Report #: [id number] MV E Max Froy.: 1.20 m/s MV PHT: 64.70 ms MVA (PHT): 3.40 cm2 TDI E/Lateral E': 10.00 E/Medial E': 12.00 Medial E' Froy.: 0.10 m/s Lateral E' Froy.: 0.12 m/s Pulmonary Valve PV Peak Froy.: 0.71 m/s PV Peak Gr.: 2.01 mmHg Left Ventricle The left ventricle is normal size. There is normal LV segmental wall motion. There is normal left ventricular wall thickness. Left ventricular systolic function is normal. LVEF is 55-60%. Moderate diastolic dysfunction is present (pseudonormal filling). Right Ventricle The right ventricle is normal size. The right ventricular systolic function is normal. Atria The left atrium size is normal. The right atrium size is normal. Aortic Valve The aortic valve is normal in structure. No aortic regurgitation is present. There is no aortic valvular stenosis. Mitral Valve The mitral valve is normal in structure. There is no mitral valve regurgitation noted. No evidence of mitral valve stenosis. Tricuspid Valve The tricuspid valve is normal in structure. There is no tricuspid valve regurgitation noted. Pulmonic Valve The pulmonary valve is normal in structure. There is no pulmonic valvular regurgitation. Great Vessels The aortic root is normal in size. IVC is normal in size and collapses >50% [place] [address] 2 D/M-MODE ECHOCARDIOGRAM Name: KAMRYN MCNALLY Room: [address] IN [facility]#: [id number] Admission: 12/02/18 Attend Phys: Kamryn Wolfe, Discharge: Date of : 53 Date of Service: 12/05/18 1615 Report #: [id number] Pericardium There is no pericardial effusion. <Conclusion> The left ventricle is normal size. There is normal left ventricular wall thickness. Left ventricular systolic function is normal. LVEF is 55-60%. Moderate diastolic dysfunction is present (pseudonormal filling). IVC is normal in size and collapses >50% with inspiration. <ELECTRONICALLY SIGNED> By: Nam Mora MD, FACC 12/05/18 1615 14 14 Nam Mora MD, FACC /INF
--- NOTE | 2018-12-05 17:03 | EKG ---
[place] [address] ELECTROCARDIOGRAM REPORT Name: KAMRYN MCNALLY Room: [address] ADM IN .R.#: [id number] Admission: 12/02/18 Attend Phys: Kamryn Wolfe MD Discharge: Date of : 53 Report #: [id number] THIS REPORT FOR: //name// 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
--- NOTE | 2018-12-05 18:31 | NUR ---
PT RECEIVED IN ICU AT 1330, O2 SATS >92% ON HFC 6L/MIN. DOPAMINE STARTED AT 5 MCG/KG/MIN FOR LOW BP. CT HEAD AND ECHO DONE. PLANNED FOR CAROTID ENDARTERECTOMY TOMORROW, INFORMED CONSENT SIGNED. ATE 100% OF HIS MEALS, TO BE KEPT NPO AFTER MIDNIGHT. GOOD URINE OUTPUT. HYDROCODONE ADMINISTERED ONCE FOR PAIN ON THE LEFT FOOT.
[2018-12-06] VITALS (18 sets, daily range): BP systolic 109–135; BP diastolic 53–74
--- NOTE | 2018-12-06 06:10 | NUR ---
ASSESSMENT CHARTED. VSS. PATIENT REMAINED ON DOPAMINE GTT DURING SHIFT AT 5 MCG/KG/MIN. PATIENT RESISTANT TO TREATMENT, BUT AGREEABLE WITH EXPLANATION. TITRATED O2 UP TO 10L ON HFNC. PATIENT RESISTANT TO KEEPING OXYGEN IN PLACE. CONSENT FOR BLOOD TRANSFUSION OBTAINED AHEAD OF SURGERY. PATIENT SCHEDULED FOR LEFT CAROTID ENDARDECTOMY AT 0730 TODAY. PATIENT NPO SINCE MIDNIGHT. WILL CONTINUE TO MONITOR UNTIL PATIENT LEAVES FOR SURGERY.
--- NOTE | 2018-12-06 07:35 | NUR ---
PT IN BED ON RA, SATURATION OF 78%, PT REFUSES SUPPLIMENTAL OXYGEN, SAYS "HE DOES NOT NEED IT", REFUSES BREATHING TREATMENT, PT TOLD THIS RT TO LEAVE HIS ROOM, NO OXYGEN WAS ADMINISTERED AND NO TREATMENT WAS GIVEN.
--- NOTE | 2018-12-06 08:00 | NUR ---
PT DENIES WEARING O2 SUPPORT DESPITE EXPLANATIONS, SAYS HE JUST WANTS TO GET OUT OF HERE, AND THAT WE ARE CHOKING HIM ON OXYGEN. SURGERY CANCELLED SINCE PT O2 SATS AT 70s AND NOT HEMODYNAMICALLY STABLE.
--- NOTE | 2018-12-06 08:30 | NUR ---
PT WANTS TO LEAVE THE HOSPITAL, HYPERION ADMINISTRATOR AND PROVIDER NOTIFIED, OKAY FOR HIM TO LEAVE AMA. PT SIGNED THE LEAVE AMA FORM AND HE CALLED HIS . ALL HIS BELONGINGS PACKED AND PT WALKED OUTSIDE THE UNIT WITH THE NURSE. HE DIDN'T WANT THE NURSE TO WAIT UNTIL HIS PICKED HIM UP, SO NURSE BACK TO THE UNIT.
--- NOTE | 2018-12-07 07:18 | CON ---
[address] [address] CONSULTATION Name: KAMRYN MCNALLY Room: [address] IN M.R.#: [id number] Admission: 12/02/18 Attend Phys: Kamryn Wolfe MD Discharge: 12/06/18 Date of : 53 Report #: [id number] THIS REPORT FOR: //name// CC: FAM physician/PCP Kamryn Wolfe MD [facility] DATE OF SERVICE: 12/06/2018 LOCATION: Bed 3 in the ICU. ATTENDING PHYSICIAN: Dr. Wolfe. INDICATION FOR CONSULTATION: Hypoxemia and COPD. HISTORY OF PRESENT ILLNESS: The patient is a 62-year-old male, current pipe smoker, who was admitted to the Emergency Department on 12/02 with complaints of chest pain radiating to his left arm. He was taken to the laboratory worker and found he had patent stents and medical management with beta blockers was noted. He has a left 90% stenosis of his left internal carotid artery. He may need to have a carotid endarterectomy on the left. He has already had a previous one on the right. He left AMA at some point in time about a month ago when he was having difficulties. Also he has a left diabetic foot ulcer and he may need amputation. He is on Plavix at this time and he was hypoxic on 10 liters. He states he has had a cough, but no fever, chills or sweat. He is short of breath at home. He does take a Ventolin inhaler at home p.r.n. Again, he is a pipe smoker of 1 to 2 bowls a day. ALLERGIES: INTOLERANCE TO CONTRAST DYE, PENICILLINS, NITROGLYCERIN, CODEINE AND FENTANYL, ALL OF WHICH GIVE HIM NAUSEA. ALSO TRAMADOL, WHICH GIVES HIM A HEADACHE. OUTPATIENT MEDICATIONS: Including metformin 500 mg b.i.d., albuterol inhaler 2 puffs p.r.n., metoprolol 25 mg b.i.d., atorvastatin 10 mg at bedtime, tamsulosin 0.4 mg at bedtime, enteric coated aspirin 81 mg daily, Plavix 75 mg daily, gabapentin 300 mg q.i.d., sertraline was 25 mg daily, sliding scale insulin. He is also on Solu-Medrol 40 mg IV push every 8 hours, DuoNeb treatments every four hours. He is on vancomycin and ceftriaxone for his foot ulcer. Oxygen is currently at 7 liters. OTHER PAST MEDICAL HISTORY: Diabetes, heart disease, peripheral vascular disease, hypertension, carotid artery disease and a previous abdominal aortic aneurysm. PAST SURGICAL HISTORY: He had a penetrating injury to the abdomen as a child, [place] [address] CONSULTATION Name: KAMRYN MCNALLY Room: [address] IN M.R.#: [id number] Admission: 12/02/18 Attend Phys: Kamryn Wolfe MD Discharge: 12/06/18 Date of : 53 Report #: [id number] otherwise negative for premature cardiopulmonary disease. SOCIAL HISTORY: I believe he lives by himself at home. Smokes a pipe. Denies any alcohol or illicit drug use. REVIEW OF SYSTEMS: A 14-point review of systems was attempted, review was negative except for pertinent positives noted in the HPI. PHYSICAL EXAMINATION: GENERAL: A 62-year-old male who was not very cooperative this morning. He answered occasionally yes and no questions if he would answer at all. VITAL SIGNS: Currently, his blood pressure is 122/62 on low-dose dopamine, heart rate is 96 and regular, respirations 16-20, and saturation on 7 liters is 96%. He is 5 feet 10 inches tall, weight 70 kilograms or 154 pounds, BMI is 22. HEENT: Nares and pharynx otherwise are clear. NECK: Supple, without nodes. No increased jugular venous pressure. CHEST: Reveals diminished breath sounds, prolonged expiratory phase. No wheeze noted. CARDIOVASCULAR: Regular rate and rhythm without murmur, gallop or rub. Heart rate is 96. ABDOMEN: Soft. No masses or megaly. EXTREMITIES: His left foot is bandaged up. Peripheral pulses are 0 to 1+ bilaterally. He has poor peripheral pulses. He does move all 4 extremities to command. NEUROLOGIC: Nonfocal least at this time. LABORATORY DATA: From 12/05/2018 shows hemoglobin 7.8, white count 8600, platelets are 361,000. Sodium is 138, potassium is 4.6, BUN is 13, creatinine 0.7, glucose is 220, calcium is 8.4. ABGs; pO2 of 69, pH 7.33, pCO2 is 48, bicarbonate is 25 with a carboxyhemoglobin was 0.4, sat was 90% yesterday morning. Chest x-ray shows COPD, hyperinflation, patchy bibasilar infiltrates and very small pleural effusions. He may have some interstitial infiltrates in his lower lobes. Heart size does not appear enlarged. Pulmonary arteries are not prominent. No masses or tumors are noted. CT of the head shows old left lentiform nucleus lacunar infarct, old stroke disease. IMPRESSION: 1. Probably moderate to moderately severe chronic obstructive pulmonary disease. 2. Peripheral vascular disease. 3. Carotid artery disease with 90% left internal carotid artery stenosis. May need left carotid endarterectomy. 4. Diabetes out of control with vasculopathy and neuropathy. 5. Hypoxemia related to multiple factors. PLAN: Continue to wean O2. We will check another blood gas this morning and [facility] [address] [place] [address] CONSULTATION Name: ULIKAMRYN Lomeli Room: [address] IN M.R.#: [id number] Admission: 12/02/18 Attend Phys: Kamryn Wolfe MD Discharge: 12/06/18 Date of : 53 Report #: [id number] then see if he will be an adequate candidate. There is question whether he is going to go to the OR today or not. He is still on Plavix. He may need to get his carotid arteries fixed and get endarterectomy, which I think he used to be at moderate increased risk, but he should be able to go off the blood gases are stable on 6 or 7 liters. Hopefully, will need to be intubated after surgery. This has been a 37-minute critical care consult. <ELECTRONICALLY SIGNED> By: Jayson Caro MD 12/07/18 0718 0736 [id number] Caro MD /nt
== END 2018-12-06 08:30 | disposition left against medical advice (07) | DRG 286 ==
LOC: M.ERS 19:20 → M.TBA-ER 21:24 → M.2W 21:24 → M.ICU 12-05 12:19
PROVIDERS: Family Medicine; Registered Nurse; Specialist; ADMIT Internal Medicine
PROC: B2151ZZ Fluoroscopy of Left Heart using Low Osmolar Contrast (ICD-10-PCS; principal; 2018-12-03)
PROC: B2111ZZ Fluoroscopy of Multiple Coronary Arteries using Low Osmolar Contrast (ICD-10-PCS; principal; 2018-12-03)
PROC: 4A023N7 Measurement of Cardiac Sampling and Pressure, Left Heart, Percutaneous Approach (ICD-10-PCS; principal; 2018-12-03)
PROC: 02HV33Z Insertion of Infusion Device into Superior Vena Cava, Percutaneous Approach (ICD-10-PCS; 2018-12-05)
PROC: B548ZZA Ultrasonography of Superior Vena Cava, Guidance (ICD-10-PCS; 2018-12-05)
DX: I25.10 Atherosclerotic heart disease of native coronary artery without angina pectoris (principal); J18.9 Pneumonia, unspecified organism; J96.01 Acute respiratory failure with hypoxia; J44.1 Chronic obstructive pulmonary disease with (acute) exacerbation; J44.0 Chronic obstructive pulmonary disease with (acute) lower respiratory infection; M86.672 Other chronic osteomyelitis, left ankle and foot; L03.116 Cellulitis of left lower limb; I10 Essential (primary) hypertension; E11.9 Type 2 diabetes mellitus without complications; E78.00 Pure hypercholesterolemia, unspecified; E11.649 Type 2 diabetes mellitus with hypoglycemia without coma; I71.4 Abdominal aortic aneurysm, without rupture; F17.210 Nicotine dependence, cigarettes, uncomplicated; E11.51 Type 2 diabetes mellitus with diabetic peripheral angiopathy without gangrene; D50.9 Iron deficiency anemia, unspecified; I70.213 Atherosclerosis of native arteries of extremities with intermittent claudication, bilateral legs; F41.9 Anxiety disorder, unspecified; I65.22 Occlusion and stenosis of left carotid artery; E11.40 Type 2 diabetes mellitus with diabetic neuropathy, unspecified; E11.621 Type 2 diabetes mellitus with foot ulcer; L97.529 Non-pressure chronic ulcer of other part of left foot with unspecified severity; E11.69 Type 2 diabetes mellitus with other specified complication; Z53.21 Procedure and treatment not carried out due to patient leaving prior to being seen by health care provider; Z91.14 Patient's other noncompliance with medication regimen; Z86.711 Personal history of pulmonary embolism; I25.2 Old myocardial infarction; Z95.5 Presence of coronary angioplasty implant and graft; Z98.1 Arthrodesis status; Z79.02 Long term (current) use of antithrombotics/antiplatelets; Z79.4 Long term (current) use of insulin; Z79.899 Other long term (current) drug therapy; Z88.5 Allergy status to narcotic agent; Z88.0 Allergy status to penicillin; Z88.8 Allergy status to other drugs, medicaments and biological substances; Z91.041 Radiographic dye allergy status; Z91.040 Latex allergy status

== ENCOUNTER 2018-12-31 14:11 | Emergency (ER) | payer MEDICAID ==
[~2018-12-31] VITALS: Ht 177.8 cm; Wt 81.2 kg
[2018-12-31 14:46] LABS: HEMATOCRIT 32.5 % (42.0-52.0); MCH 22.1 pg (26.0-34.0); MCHC 30.9 g/dL (28.0-37.0); MCV 71.5 fL (80.0-100.0); NUCLEATED RBCS 0 /100WBC; PLATELET COUNT* 417 thou/uL (150-400); RBC 4.54 mil/uL (4.50-6.00); RDW-CV 24.2 % (10.5-14.5); WBC 6.3 thou/uL (4.0-11.0)
--- NOTE | 2018-12-31 14:46 | EKG ---
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 : 1955 Requested By: Presley Bahena Order Number: [id number] MD: Austin Jones Measurements Intervals [place] Rate: 82 P: 78 DE: 188 QRS: 76 QRSD: 92 T: 257 QT: 391 QTc: 457 Interpretive Statements Sinus rhythm Probable left atrial enlargement LVH with secondary repolarization abnormality Compared to ECG 12/05/2018 09:04:13 Left ventricular hypertrophy now present Ventricular premature complex(es) no longer present Electronically Signed On 12-31-2018 14:46:15 CDT by Austin Jones [email or web address] <ELECTRONICALLY SIGNED> By: Austin Jones MD, [facility] 12/31/18 1446 141 15 Austin Jones MD, [facility] /EPI
[2018-12-31 14:56] LABS: ANION GAP 7 mmol/L (7-16); APTT 23.2 Seconds (25.0-31.3); BUN 5 mg/dL (7-18); CALCIUM 8.5 mg/dL (8.5-10.1); CHLORIDE 103 mmol/L (98-107); CO2 29 mmol/L (21-32); CREATININE 0.9 mg/dL (0.6-1.3); GLUCOSE 314 mg/dL (70-99); INR 1.1; POTASSIUM 3.5 mmol/L (3.5-5.1); PROTIME 11.7 Seconds (9.20-11.50); SODIUM 139 mmol/L (136-145)
[2018-12-31 15:10] LABS: ALBUMIN 2.9 g/dL (3.4-5.0); ALKALINE PHOSPHATASE 110 U/L (46-116); CK-MB MASS 3.2 ng/mL (<0.5-3.6); LIPASE 69 U/L (73-393); MAGNESIUM 1.3 mg/dL (1.8-2.4); NT-PRO BRAIN NAT PEPTIDE 2012 pg/mL (<300); SGOT 10 U/L (15-37); SGPT 18 U/L (30-65); TOTAL BILIRUBIN 0.2 mg/dL (<0.1-1.0); TOTAL PROTEIN 6.4 g/dL (6.4-8.2); TROPONIN-I LEVEL <0.06 ng/mL (<0.06)
[2018-12-31 15:28] VITALS: BP 122/65
[2018-12-31 15:52] LABS: ABSOLUTE EOSINOPHILS 0.6 thou/uL (0.0-0.7); ABSOLUTE LYMPHOCYTES 2.3 thou/uL (0.8-5.3); ABSOLUTE MONOCYTES 0.4 thou/uL (0.0-1.2); ATYPICAL LYMPHS 2 %
[2018-12-31 15:53] LABS: ANISOCYTOSIS 2+; HYPOCHROMASIA 1+; MICROCYTES 2+; PLATELET ESTIMATE INCREASED
[2019-01-01] MEDS ORDERED: APAP650 PO (12:09)
== END 2018-12-31 15:30 | disposition left against medical advice (07) ==
LOC: M.ERS 14:11
PROVIDERS: Family Medicine
DX: R07.89 Other chest pain (principal); F17.200 Nicotine dependence, unspecified, uncomplicated; I10 Essential (primary) hypertension; E11.9 Type 2 diabetes mellitus without complications; E78.00 Pure hypercholesterolemia, unspecified; E78.5 Hyperlipidemia, unspecified; I25.10 Atherosclerotic heart disease of native coronary artery without angina pectoris; J44.9 Chronic obstructive pulmonary disease, unspecified; Z88.8 Allergy status to other drugs, medicaments and biological substances; Z88.5 Allergy status to narcotic agent; Z91.041 Radiographic dye allergy status; Z88.4 Allergy status to anesthetic agent; Z88.6 Allergy status to analgesic agent; Z91.040 Latex allergy status; Z88.0 Allergy status to penicillin; Z91.048 Other nonmedicinal substance allergy status

== ENCOUNTER 2019-01-12 12:34 | Inpatient (IN) | payer MEDICAID ==
[~2019-01-12] VITALS: Ht 177.8 cm; Wt 66.0 kg
[~2019-01-12 12:34] MED LIST changes: +APAP650 PO
[2019-01-12 12:36] VITALS: BP 118/61
[2019-01-12 13:06] LABS: ABSOLUTE BASOPHILS 0.1 thou/uL (0.0-0.2); ABSOLUTE EOSINOPHILS 0.1 thou/uL (0.0-0.7); ABSOLUTE LYMPHOCYTES 1.6 thou/uL (0.8-5.3); ABSOLUTE MONOCYTES 0.4 thou/uL (0.0-1.2); ABSOLUTE NEUTROPHILS 3.4 thou/uL (1.6-8.1); BASOPHILS 1.4 %; EOSINOPHILS 1.4 %; HEMATOCRIT 36.9 % (42.0-52.0); HEMOGLOBIN 11.3 gm/dL (14.0-18.0); MCH 22.5 pg (26.0-34.0); MCHC 30.6 g/dL (28.0-37.0); MCV 73.6 fL (80.0-100.0); MONOCYTES 6.8 %; MPV 7.4 fl. (7.2-11.1); NUCLEATED RBCS 0 /100WBC; PLATELET COUNT* 357 thou/uL (150-400); POLYS 61.4 %; RBC 5.02 mil/uL (4.50-6.00); RDW-CV 24.4 % (10.5-14.5); WBC 5.5 thou/uL (4.0-11.0)
[2019-01-12 13:15] LABS: ANION GAP 8 mmol/L (7-16); BUN 7 mg/dL (7-18); CALCIUM 8.6 mg/dL (8.5-10.1); CHLORIDE 95 mmol/L (98-107); CO2 27 mmol/L (21-32); CREATININE 0.9 mg/dL (0.6-1.3); GLUCOSE 483 mg/dL (70-99); SODIUM 130 mmol/L (136-145)
[2019-01-12 13:16] LABS: INR 1.1; PROTIME 10.9 Seconds (9.20-11.50)
[2019-01-12 13:26] LABS: ALBUMIN 3.2 g/dL (3.4-5.0); ALKALINE PHOSPHATASE 127 U/L (46-116); LIPASE 92 U/L (73-393); NT-PRO BRAIN NAT PEPTIDE 1802 pg/mL (<300); SGOT 6 U/L (15-37); SGPT 16 U/L (30-65); TOTAL BILIRUBIN 0.2 mg/dL (<0.1-1.0); TOTAL PROTEIN 6.8 g/dL (6.4-8.2); TROPONIN-I LEVEL <0.06 ng/mL (<0.06)
[2019-01-12 14:02] LABS: PLATELET ESTIMATE ADEQUATE
[2019-01-12 14:03] LABS: ANISOCYTOSIS 2+; HYPOCHROMASIA 2+; MICROCYTES 1+
[2019-01-12 14:04] LABS: OVALOCYTES Occasional
[2019-01-12 18:07] VITALS: BP 115/74
[2019-01-12 18:28] VITALS: BP 117/64
--- NOTE | 2019-01-12 18:43 | NUR ---
RECEIVED REPOTY FROM HUMBERTO RN IN ER OF EXPECTED ADMISSION AT 1723- DX: UNSTABLE ANGINA, HYPERGLYCEMIA- PT ARRIVED TO ROOM 228 VIA CART, AX1 TO BED- STEEL BOX TOE INSERTER PLACED ORDERED, TRACING SR WITH PVC'S- PT A&O X4, AND NOTED TO BE VERY GRUMMY- CONTINENT OF BOWEL AND BLADDER- COURSE LUNG SOUNDS WITH NOTED WHEEZING- WET COUGH NOTED, PT DENIES ANY SPUTUM- VS 98.4 18 117/64 84 94% ON 2L VIA NC- ABD SOFT/FLAT/NON-TENDER, BS X4 QUADS- PT REPORTS LAST BM 01/11/19- FIELD STICK NOTED TO LEFT HAND INTACT WITH HEPARIN THAT WAS STARTED IN ER INFUSSING- SCATTERED BLE HEALING SCABS NOTED, PT REPORTS TO BE R/T PRIOR EDEMA- TRACE TO 1+ BLE EDEMA NOTED AT THIS TIME- PT NOTED TO NOT HAVE ANY TEETH- BS ON ADMISSION NOTED AT 335, SCHEDULED INSULIN AND METFORMIN GIVEN- GLASSES NOTED- PT ORIENTATED TO ROOM, CALL LIGHT AND PERSONAL BELONGINGS WITH IN REACH- HOURLY ROUNDS IN PLACE R/T SAFETY/NEEDS- ALL NEEDS MET AT THIS TIME-WCTM
[2019-01-12 19:50] VITALS: BP 117/54
[2019-01-13] VITALS: BP 112/69
[2019-01-13 03:15] LABS: ABSOLUTE BASOPHILS 0.1 thou/uL (0.0-0.2); ABSOLUTE EOSINOPHILS 0.6 thou/uL (0.0-0.7); ABSOLUTE LYMPHOCYTES 2.1 thou/uL (0.8-5.3); ABSOLUTE MONOCYTES 0.3 thou/uL (0.0-1.2); ABSOLUTE NEUTROPHILS 3.7 thou/uL (1.6-8.1); BASOPHILS 0.9 %; EOSINOPHILS 9.2 %; HEMATOCRIT 34.6 % (42.0-52.0); HEMOGLOBIN 10.6 gm/dL (14.0-18.0); LYMPHOCYTES 31.4 %; MCH 22.3 pg (26.0-34.0); MCHC 30.6 g/dL (28.0-37.0); MONOCYTES 5.1 %; MPV 7.3 fl. (7.2-11.1); NUCLEATED RBCS 0 /100WBC; PLATELET COUNT* 295 thou/uL (150-400); POLYS 53.4 %; RBC 4.74 mil/uL (4.50-6.00); RDW-CV 24.3 % (10.5-14.5); WBC 6.8 thou/uL (4.0-11.0)
[2019-01-13 04:00] VITALS: BP 109/47
[2019-01-13 05:40] LABS: PLATELET ESTIMATE ADEQUATE
[2019-01-13 05:41] LABS: HYPOCHROMASIA 1+; MICROCYTES 1+; OVALOCYTES 1+; POLYCHROMASIA 1+
[2019-01-13 05:42] LABS: ANISOCYTOSIS 1+; POIKILOCYTOSIS 1+
[2019-01-13 07:45] VITALS: BP 114/62
--- NOTE | 2019-01-13 07:45 | NUR ---
VSS. SEE MAR. SEE CHARTING. HOURLY ROUNDING FOR SAFETY.
--- NOTE | 2019-01-13 08:50 | NUR ---
PT C/O OF CHEST PAIN THIS AM. PT 88% ON 2L NC AND TITRATED TO 5L NC. EKG OBTAINED PER PROTOCOL. NO CARDIOLOGY CONSULT. NOTIFIED. RECEIVED CARDIOOGY CONSULT. EKG SHOWED TO CARDIOLOGY.
--- NOTE | 2019-01-13 09:16 | NUR ---
PT REFUSING FALL PRECAUTIONS.
--- NOTE | 2019-01-13 09:54 | NUR ---
PT IS A/0 X'S 4. PT STATES HE WAS DISCHARGED BY CARDIOLOGY. EXPLAINED TO PATIENT HE WAS NOT DISCHARGED. PT STATED HE IS GOING HOME. PT DRESSED IN CLOTHES, PUT HIS SHOES ON, WALKING AROUND ROOM. REQUESTING PAPER WORK TO LEAVE. EXPLAINED TO PT HE IS LEAVING AMA. EXPLAINED TO PATIENT THAT HE IS REQUIRING OXYGEN. PT STATES " I DON'T NEED IT AT HOME". EXPLAINED TO PATIENT HE IS NEEDING IT TODAY.
--- NOTE | 2019-01-13 16:59 | EKG ---
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: JOVAN : 1955 Requested By: Giacomo Farooq Order Number: [id number] MD: Austin Jones Measurements Intervals [place] Rate: 99 P: 82 AR: 166 QRS: -47 QRSD: 142 T: 121 QT: 385 QTc: 495 Interpretive Statements Sinus rhythm Multiple ventricular premature complexes Left bundle branch block Compared to ECG 12/31/2018 14:16:16 Ventricular premature complex(es) now present Left bundle-branch block now present Electronically Signed On 01-13-2019 16:59:43 CDT by Austin Jones [email or web address] <ELECTRONICALLY SIGNED> By: Austin Jones MD, [facility] 01/13/19 1659 1239 1239 Austin Jones MD, [facility] /EPI
--- NOTE | 2019-01-13 17:14 | EKG ---
[place] [address] ELECTROCARDIOGRAM REPORT Name: KAMRYN MCNALLY Room: [address] IN M.R.#: [id number] Admission: 01/12/19 Attend Phys: Kamryn Wolfe MD Discharge: 01/13/19 Date of : 53 Report #: [id number] THIS REPORT FOR: //name// [facility] Test Date: 2019-01-13 Test Time: 08:09:35 Pat Name: KAMRYN MCNALLY Department: Room: [address] Gender: M Interventional Cardiologist: CARRIE : 1955 Requested By: Kamryn Wolfe Order Number: [id number] Helen MD: Austin Jones Measurements Intervals [place] Rate: 84 P: 80 [place]: 174 QRS: -57 QRSD: 135 T: 155 QT: 412 QTc: 488 Interpretive Statements Sinus rhythm Multiple ventricular premature complexes Left bundle branch block Electronically Signed On 01-13-2019 17:14:25 CDT by Austin Jones [email or web address] <ELECTRONICALLY SIGNED> By: Austin Jones MD, [facility] 01/13/19 1714 D: 08/808 8 Austin Jones MD, [facility] /EPI
--- NOTE | 2019-01-15 16:36 | CON ---
[address] [address] CONSULTATION Name: KAMRYN MCNALLY Room: [address] IN M.R.#: [id number] Admission: 01/12/19 Attend Phys: Kamryn Wolfe MD Discharge: 01/13/19 Date of : 53 Report #: [id number] THIS REPORT FOR: //name// CC: KARLI physician/PCP Kamryn Wolfe DATE OF SERVICE: 01/13/2019 CARDIOLOGY CONSULTATION HISTORY OF PRESENT ILLNESS: The patient is a 63-year-old white male, who I was asked to see in the hospital today after complained of being short of breath. The history is obtained from the patient, as well as some old records. He was actually here at [facility] in September, complained of chest pain. He has had a previous carotid endarterectomy. Because of his history of vascular disease and complaint of chest pain, Dr. Mora actually performed a cardiac catheterization on 12/03, about a month ago. The LAD had 50% stenosis. The circumflex had stents with no significant restenosis. The right coronary artery had a stent with no restenosis. There was a small branch of the ramus artery, had a 90% ostial stenosis. There was normal left ventricular systolic function. Medical therapy was recommended. The patient was brought to the Emergency Room by paramedics yesterday, complaining of chest pain. He complained of shortness of breath. I was asked to see him for further evaluation and treatment. He is not very active at this time and uses a cane. PAST MEDICAL HISTORY: Significant for coronary artery stenting. He apparently has been cared for at [facility] in the past. MEDICATIONS: On admission consists of Plavix, Neurontin, Zoloft, metformin, metoprolol, Lipitor, Flomax, insulin. ALLERGIES: HE HAS INTOLERANCE TO CODEINE, FENTANYL. He had a recent removal of a toe. He has a small abdominal aneurysm, hypertension, diabetes, hyperlipidemia. SOCIAL HISTORY: He is single, lives by himself. Retired from the . No smoking or alcohol abuse. REVIEW OF SYSTEMS: He states he had a previous stroke. No history of peptic ulcer disease or liver disease. PHYSICAL EXAMINATION: GENERAL: Revealed a frail appearing white male, lying in bed, appeared in no acute distress. VITAL SIGNS: He had a blood pressure of 110/60, pulse is 80. [place] [address] CONSULTATION Name: KAMRYN MCNALLY Room: [address]#: [id number] Admission: 01/12/19 Attend Phys: Kamryn Wolfe MD Discharge: 01/13/19 Date of : 53 Report #: [id number] HEENT: He was anicteric. Conjunctivae are pink. Mucous membranes moist. NECK: Neck veins do not appear distended. No carotid bruits. CHEST: Clear to auscultation. CARDIOVASCULAR: Regular rate and rhythm. ABDOMEN: Soft. EXTREMITIES: Had no edema. SKIN: Cool and dry. NEUROLOGIC: Exam is nonfocal. RADIOLOGICAL DATA: His ECG showed a sinus rhythm, PVC, and a left bundle-branch block. His workup, he had an echocardiogram last month that showed ejection fraction 60%. He had a portable chest x-ray last night that showed no acute abnormality. Carotid Doppler study done last month showed no significant stenosis. He had ABIs last month that showed evidence of PAD of the right lower extremity. LABORATORY WORK: Sodium 130, creatinine 0.9, glucose 438. Troponins all 0.06. BNP 1802. Recent cholesterol is 90, triglycerides 75, HDL 33, LDL 42. TSH 0.1. White blood cell count 6.8, hemoglobin 10.6. IMPRESSION AND RECOMMENDATIONS: 1. Chest pain. Previous stenting. Heart catheterization a month ago showed no significant stenosis. Recommend medical therapy. 2. Diabetes. 3. Hypertension. 4. Hyperlipidemia. 5. Peripheral arterial disease with recent toe amputation. 6. History of previous stroke. 7. Anemia. No history of bleeding. <ELECTRONICALLY SIGNED> By: Austin Jones MD, [facility] 01/15/19 1636 0905 1044Davisarabjit Jones MD, FACC /nt
== END 2019-01-13 10:05 | disposition left against medical advice (07) | DRG 303 ==
LOC: M.ERS 12:34 → M.TBA-ER 13:44 → M.2W 17:49
PROVIDERS: Emergency Medicine; ADMIT Internal Medicine
DX: I25.110 Atherosclerotic heart disease of native coronary artery with unstable angina pectoris (principal); I50.32 Chronic diastolic (congestive) heart failure; E44.1 Mild protein-calorie malnutrition; E87.1 Hypo-osmolality and hyponatremia; E78.00 Pure hypercholesterolemia, unspecified; D64.9 Anemia, unspecified; I44.7 Left bundle-branch block, unspecified; Z53.21 Procedure and treatment not carried out due to patient leaving prior to being seen by health care provider; F17.290 Nicotine dependence, other tobacco product, uncomplicated; I11.0 Hypertensive heart disease with heart failure; E11.65 Type 2 diabetes mellitus with hyperglycemia; E11.51 Type 2 diabetes mellitus with diabetic peripheral angiopathy without gangrene; J44.9 Chronic obstructive pulmonary disease, unspecified; E78.5 Hyperlipidemia, unspecified; Z91.048 Other nonmedicinal substance allergy status; I25.10 Atherosclerotic heart disease of native coronary artery without angina pectoris; I25.2 Old myocardial infarction; Z88.8 Allergy status to other drugs, medicaments and biological substances; Z79.84 Long term (current) use of oral hypoglycemic drugs; Z95.5 Presence of coronary angioplasty implant and graft; Z79.82 Long term (current) use of aspirin; Z88.0 Allergy status to penicillin; Z88.5 Allergy status to narcotic agent; Z91.041 Radiographic dye allergy status; Z91.040 Latex allergy status; Z89.429 Acquired absence of other toe(s), unspecified side; Z82.49 Family history of ischemic heart disease and other diseases of the circulatory system; Z91.19 Patient's noncompliance with other medical treatment and regimen; Z68.20 Body mass index [BMI] 20.0-20.9, adult

== ENCOUNTER 2019-01-26 13:44 | Emergency (ER) | payer MEDICAID ==
[~2019-01-26] VITALS: Ht 177.8 cm; Wt 68.0 kg
[2019-01-26 13:50] VITALS: BP 109/59
--- NOTE | 2019-01-27 07:39 | EKG ---
[place] [address] ELECTROCARDIOGRAM REPORT Name: KAMRYN MCNALLY Room: [facility]#: [id number] Admission: 01/26/19 Attend Phys: Discharge: 01/26/19 Date of : 53 Report #: [id number] THIS REPORT FOR: //name// [facility] ED Test Date: 2019-01-26 Test Time: 13:49:25 Pat Name: KAMRYN MCNALLY Department: Room: Gender: M Thoracic Medicine Specialist: MIRIAM : 1955 Requested By: Laura Cole Order Number: [id number] MD: Austin Jones Measurements Intervals [place] Rate: 102 P: 77 [place]: 169 QRS: -30 QRSD: 141 T: 123 QT: 386 QTc: 503 Interpretive Statements Sinus tachycardia Ventricular premature complex Left bundle branch block Compared to ECG 01/13/2019 08:09:35 Sinus rhythm no longer present Electronically Signed On 01-27-2019 7:39:50 CDT by Austin Jones [email or web address] <ELECTRONICALLY SIGNED> By: Austin Jones MD, [facility] 01/27/19 0739 1349 48 Austin Jones MD, FACC /EPI
== END 2019-01-26 14:12 | disposition home or self-care (01) ==
LOC: M.ERS 13:44
DX: R07.89 Other chest pain (principal); F17.200 Nicotine dependence, unspecified, uncomplicated; E11.9 Type 2 diabetes mellitus without complications; E78.00 Pure hypercholesterolemia, unspecified; I25.10 Atherosclerotic heart disease of native coronary artery without angina pectoris; E78.5 Hyperlipidemia, unspecified; J44.9 Chronic obstructive pulmonary disease, unspecified; I11.0 Hypertensive heart disease with heart failure; I50.32 Chronic diastolic (congestive) heart failure; Z88.8 Allergy status to other drugs, medicaments and biological substances; Z88.5 Allergy status to narcotic agent; Z91.041 Radiographic dye allergy status; Z88.6 Allergy status to analgesic agent; Z91.040 Latex allergy status; Z88.0 Allergy status to penicillin; Z91.048 Other nonmedicinal substance allergy status

== ENCOUNTER 2019-01-27 17:47 | Inpatient (IN) | payer MEDICAID ==
[~2019-01-27] VITALS: Ht 177.8 cm; Wt 66.7 kg
[2019-01-27 18:04] LABS: ABSOLUTE BASOPHILS 0.1 thou/uL (0.0-0.2); ABSOLUTE EOSINOPHILS 0.3 thou/uL (0.0-0.7); ABSOLUTE LYMPHOCYTES 3.1 thou/uL (0.8-5.3); ABSOLUTE MONOCYTES 0.5 thou/uL (0.0-1.2); ABSOLUTE NEUTROPHILS 5.4 thou/uL (1.6-8.1); BASOPHILS 1.5 %; EOSINOPHILS 3.3 %; HEMATOCRIT 37.4 % (42.0-52.0); HEMOGLOBIN 11.6 gm/dL (14.0-18.0); MCH 22.7 pg (26.0-34.0); MCV 73.1 fL (80.0-100.0); MONOCYTES 5.4 %; MPV 7.2 fl. (7.2-11.1); NUCLEATED RBCS 0 /100WBC; PLATELET COUNT* 534 thou/uL (150-400); POLYS 56.8 %; RBC 5.12 mil/uL (4.50-6.00); RDW-CV 23.2 % (10.5-14.5); WBC 9.5 thou/uL (4.0-11.0)
[2019-01-27 18:13] LABS: APTT 24.1 Seconds (25.0-31.3); PROTIME 10.4 Seconds (9.20-11.50)
[2019-01-27 18:15] LABS: ANION GAP 8 mmol/L (7-16); BUN 10 mg/dL (7-18); CALCIUM 8.6 mg/dL (8.5-10.1); CHLORIDE 102 mmol/L (98-107); CO2 27 mmol/L (21-32); CREATININE 0.9 mg/dL (0.6-1.3); GLUCOSE 121 mg/dL (70-99); POTASSIUM 3.9 mmol/L (3.5-5.1); SODIUM 137 mmol/L (136-145)
[2019-01-27 18:24] LABS: ANISOCYTOSIS 2+; GIANT PLATELETS RARE; HYPOCHROMASIA 2+; PLATELET ESTIMATE INCREASED
[2019-01-27 18:25] LABS: MICROCYTES 1+; OVALOCYTES Occasional; TARGET CELLS Occasional
[2019-01-27 18:27] LABS: ALBUMIN 3.1 g/dL (3.4-5.0); ALKALINE PHOSPHATASE 113 U/L (46-116); CK-MB MASS 4.4 ng/mL (<0.5-3.6); LIPASE 101 U/L (73-393); MAGNESIUM 1.5 mg/dL (1.8-2.4); NT-PRO BRAIN NAT PEPTIDE 1483 pg/mL (<300); SGOT 9 U/L (15-37); SGPT 18 U/L (30-65); TOTAL BILIRUBIN 0.2 mg/dL (<0.1-1.0); TOTAL PROTEIN 6.7 g/dL (6.4-8.2); TROPONIN-I LEVEL <0.06 ng/mL (<0.06)
--- NOTE | 2019-01-27 19:31 | NUR ---
VIA REPORT FROM OFF GOING RN. PATIENT HAD MULTIPLE ATTEMPTS TO ESTABLISH IV ACCESS WITH OUT SUCCESS. DR DONOVAN HAD ATTEMPTED WITH SONOGRAM WITH OUT SUCCESS.
[2019-01-27 19:56] VITALS: BP 133/48
[2019-01-27 20:30] VITALS: BP 108/36
[2019-01-28 00:39] VITALS: BP 110/58
[2019-01-28 04:00] VITALS: BP 96/44
--- NOTE | 2019-01-28 04:16 | NUR ---
RECEIVED REPORT FROM ED RN. PT TRANSFERRED TO RM 218. PT A&OX4. VSS. BOAT CARPENTER IN PLACE. PT ON O2 AT 2L NC. PT TRACING SR BBB PVC'S ON TELE. PT UPSTANDBY TO RESTROOM. PT COMPLAINED OF CHEST PAIN- DR COLLAZO MADE AWARE WITH NEW ORDERS. MEDS GIVEN PER JUL. ORIENTED TO ROOM & CALL LIGHT. FALL PRECAUTION OBSERVED. CALL LIGHT WITHIN REACH.
[2019-01-28 08:00] VITALS: BP 95/41
[2019-01-28 10:37] VITALS: BP 108/54
--- NOTE | 2019-01-28 10:58 | NUR ---
CM COMPLETED INITIAL ASSESSMENT. PT ALERT AND ORIENTED TO DISCUSS ROLE OF CM AND D/C PLANNING. PT SEEMINGLY AGITATED, EVIDENCED BY, REFUSING TO DISCUSS CURRENT LIVING SITUATION. STATED, "WHAT DOES THAT HAVE TO DO WITH ANYTHING. THATS NOT WHAT I'M HERE FOR." CM REINTERATED ROLE. PT STATED HE WANATED TO LIVE AT [place], BUT KNOWS HE HAS BEEN DENIED, STATES, "I GO WHER THE BODY TAKES ME." CM ASKED IF PT HAD CONSIDERED OTHER LTC OPTIONS. PT STATED HE DOESNT REMEMBER CHOICES PROVIDED IN THE PAST. CM GAVE PT LIST OF FACILITIES TO REVIEW. CM TO CONT TO FOLLOW PT TO ASSIST NEEDED.
[2019-01-28 11:30] VITALS: BP 104/57
--- NOTE | 2019-01-28 13:21 | NUR ---
PT A/O, BUT HARD TO GET INFORMATION FROM. TELE TRACKING SR/BBB AND ALL VSS ON 3L. C/O CHEST PAIN 8 UNRELIEVED BY MORPHINE- PROVIDERS AWARE. DENIES N/V. BED ALARM ON. EDUCATED ON SAFETY AND PLAN OF CARE. PLEASE SEE ASSESSMENT FOR ADDITIONAL INFORMATION. WILL CONT TO MONITOR
[2019-01-28 15:45] VITALS: BP 110/63
--- NOTE | 2019-01-28 16:17 | EKG ---
[place] [address] ELECTROCARDIOGRAM REPORT Name: KAMRYN MCNALLY Room: [address] ADM IN .R.#: [id number] Admission: 01/27/19 Attend Phys: Morales Santos Discharge: Date of : 53 Report #: [id number] THIS REPORT FOR: //name// [facility] ED Test Date: 2019-01-27 Test Time: 17:53:52 Pat Name: KAMRYN MCNALLY Department: Room: [facility] Gender: M Pressure Welder: CD : 1955 Requested By: Presley Bahena Order Number: [id number] MD: Julio Olivia Measurements Intervals [place] Rate: 93 P: 77 [place]: 169 QRS: -62 QRSD: 137 T: 115 QT: 391 QTc: 487 Interpretive Statements Sinus rhythm Multiple ventricular premature complexes Left bundle branch block Compared to ECG 01/26/2019 13:49:25 Sinus tachycardia no longer present Electronically Signed On 01-28-2019 16:16:51 CDT by Julio Olivia [email or web address] <ELECTRONICALLY SIGNED> By: Julio Olivia MD, [facility] 01/28/19 1616 1753 1753 Julio Olivia MD, [facility] /EPI
--- NOTE | 2019-01-28 16:20 | EKG ---
[place] [address] ELECTROCARDIOGRAM REPORT Name: KAMRYN MCNALLY Room: [address] ADM IN M.R.#: [id number] Admission: 01/27/19 Attend Phys: Morales Santos Discharge: Date of : 53 Report #: [id number] THIS REPORT FOR: //name// [facility] Test Date: 2019-01-28 Test Time: 00:26:46 Pat Name: KAMRYN MCNALLY Department: Room: [address] Gender: M Orthotic Practitioner: RP05 : 1955 Requested By: Kip Kaufman Order Number: [id number] Helen MD: Julio Olivia Measurements Intervals [place] Rate: 81 P: 79 [place]: 185 QRS: -50 QRSD: 142 T: 110 QT: 425 QTc: 494 Interpretive Statements Sinus rhythm Multiple ventricular premature complexes Nonspecific IVCD with LAD Anterior Q waves, possibly due to LVH Baseline wander in lead(s) V4 Compared to ECG 01/26/2019 13:49:25 Left ventricular hypertrophy now present Early repolarization now present Q waves now present Sinus tachycardia no longer present Electronically Signed On 01-28-2019 16:20:37 CDT by Julio Olivia [email or web address] <ELECTRONICALLY SIGNED> By: Julio Olivia MD, [facility] 01/28/19 1620 0026 0026 Julio Olivia MD, [facility] /EPI
--- NOTE | 2019-01-28 20:30 | NUR ---
PT REFUSING VITALS AND ALL MEDICATIONS. WAS EXTREMELY RUDE AND UNCOOPERATIVE.
[2019-01-29] VITALS: BP 118/85
[2019-01-29 04:00] VITALS: BP 116/62; BP 118/85
[2019-01-29 04:56] LABS: HEMOGLOBIN 11.2 gm/dL (14.0-18.0); MCH 22.6 pg (26.0-34.0); MCHC 30.2 g/dL (28.0-37.0); MCV 74.6 fL (80.0-100.0); MPV 7.4 fl. (7.2-11.1); RBC 4.95 mil/uL (4.50-6.00); RDW-CV 23.7 % (10.5-14.5); WBC 7.6 thou/uL (4.0-11.0)
--- NOTE | 2019-01-29 05:02 | NUR ---
PT IS ABLE TO COMMUNICATE HIS NEEDS TO STAFF WITH SOME MINOR DIFFICULTY; HE IS SOMETIMES VERY RUDE AND IS UNCOOPERATIVE. CURRENT PAIN MEDICATION REGIMEN HAS BEEN ADEQUATE FOR CONTROLLING HIS PAIN UP TO THIS TIME. HE WILL BE NPO, EXCEPT FOR WATER AND MEDS, AT 0900 TODAY FOR A STRESS TEST. NOTED EARLIER, HE DID REFUSE MEDS LAST EVENING. PT ALSO TENTATIVELY SCHEDULED TO HAVE A CTA CHEST LATER TODAY.
[2019-01-29 05:11] LABS: ALBUMIN 2.6 g/dL (3.4-5.0); CALCIUM 8.6 mg/dL (8.5-10.1); CREATININE 0.9 mg/dL (0.6-1.3); POTASSIUM 5.1 mmol/L (3.5-5.1); TOTAL BILIRUBIN 0.2 mg/dL (<0.1-1.0)
[2019-01-29 06:11] LABS: GLYCOHEMOGLOBIN (HGB A1C) 10.9 % (4.8-5.6)
[2019-01-29 08:00] VITALS: BP 117/71
--- NOTE | 2019-01-29 10:37 | NUR ---
WOUND CARE NOTE: CONSULT RECEIVED FOR LEFT FOOT DIABETIC ULCER. PATIENT PRESENTS WITH A FULL THICKNESS ULCERATION TO THE LEFT 4TH TOE. PATIENT WAS ASSESSED ALONG SIDE HOSPITALIST AND VASCULAR TOBACCO PACKER. PATIENT ADEMENTLY REFUSES ANY CARE TO THIS WOUND, STATES IT IS FINE AND THAT DR. DONOVAN DOES NOT WANT ANY OTHER DOCTOR MESSING WITH IT. PATIENT'S RN ATTEMPTED TO TAKE PHOTO OF AREA AND PATIENT REFUSED EVEN AFTER EDUCATION. FROM VISUAL ASSESSMENT, 4TH TOE IS INFLAMMED, EDEMATOUS WITH AN ULCERATION TO THE DORSAL ASPECT. APPROXIMATELY 0.5X0.5 IN SIZE, BUT UNABLE TO DETERMINE DEPTH. DRIED SEROSANGUINEOUS DRAINAGE PRESENT TO MARLEEN-WOUND. TOBACCO PACKER WAS ABLE TO DOPPLE PEDAL PULSES BILATERALLY. RECOMMEND CONTINUE FOLLOWING UP WITH DR. DONOVAN ENCOURAGE GOOD NUTRTION/HYDRATION TIGHT BLOOD GLUCOSE CONTROL WOULD LIKE TO PACK WOUND IF PATIENT IS EVER AGREEABLE TO CARES FOR THE WOUND
[2019-01-29 12:00] VITALS: BP 112/64
--- NOTE | 2019-01-29 14:37 | NUR ---
VSS, ASSUMED CARE IN THE AM, ASSESSMENT PERFORMED AND CHARTED, FALL PRECAUTIONS IN PLACE AND CALL LIGHT IN REACH, PT IS A&O3, BUT FORGETFUL, PT STATES HE WANTS TO LEAVE, PT REFUSES TO COMPLETE STRESS TEST, AT THIS TIME HE HAS SINGED AMA PAPERS AND IV AND TELE MONITOR TAKENB OUT. HOURLY ROUNDS COMPLETED AND WILL FOLLOW WITH PLAN OF CARE, I HAVE CONTATCTED DR. COLEMAN. PT WALKED OUT THROUGH ER.
--- NOTE | 2019-01-29 18:02 | CARDNUC ---
[place] [address] CARDIAC NUCLEAR IMAGING REPORT Name: KAMRYN MCNALLY Room: [address] IN M.R.#: [id number] Admission: 01/27/19 Attend Phys: Kip Kaufman Discharge: 01/29/19 Date of : 53 Date of Service: 01/29/191801 Report #: [id number] THIS REPORT FOR: //name// APPROVED REPORT Imaging Protocol: incomplete with acquisition of resting images only Study performed: 01/28/2019 15:15:00 ROSALINDA Tech:HILARY Ruff BMI: 0 Resting Data Rest SPECT myocardial perfusion imaging was performed in supine position 30 minutes following the intravenous injection of 9.0 mCi of Tc-99m Sestamibi. Time of rest injection: 1250 Date: 01/29/2019 Administration Route: IV Stress Test Details Stress Test: the stress portion of this test was not obtained as patient refused follow-up. HR Max Heart Rate (APMHR): 156 bpm Target HR (85% APMHR): 132 bpm BP ECG Perfusion Resting images were obtained that show a moderate to large size moderate to severe intensity defect involving the inferior and inferoapical wall. Stress images were not obtained for comparison. Wall Motion The study does not include gated images. No comment on wall motion. Nuclear Conclusion This is an incomplete resting only study. [place] [address] CARDIAC NUCLEAR IMAGING REPORT Name: KAMRYN MCNALLY Room: [address] IN M.R.#: [id number] Admission: 01/27/19 Attend Phys: Kip Kaufman Discharge: 01/29/19 Date of : 53 Date of Service: 01/29/191801 Report #: [id number] a defect involving the inferior to the inferoapical wall. The study is incomplete. No stress images were obtained for comparison. <ELECTRONICALLY SIGNED> By: Nam Mora MD, FACC 01/29/191801 01 01 Nam Mora MD, FACC /INF
== END 2019-01-29 14:30 | disposition left against medical advice (07) | DRG 313 ==
LOC: M.ERS 17:47 → M.2W 18:55 → M.TBA-ER 18:55 → M.2W 20:05
PROVIDERS: Family Medicine; ADMIT Internal Medicine
DX: R07.89 Other chest pain (principal); I50.32 Chronic diastolic (congestive) heart failure; J44.1 Chronic obstructive pulmonary disease with (acute) exacerbation; I25.10 Atherosclerotic heart disease of native coronary artery without angina pectoris; E78.5 Hyperlipidemia, unspecified; I11.0 Hypertensive heart disease with heart failure; I65.22 Occlusion and stenosis of left carotid artery; E11.51 Type 2 diabetes mellitus with diabetic peripheral angiopathy without gangrene; E11.621 Type 2 diabetes mellitus with foot ulcer; F41.9 Anxiety disorder, unspecified; I71.4 Abdominal aortic aneurysm, without rupture; L97.529 Non-pressure chronic ulcer of other part of left foot with unspecified severity; E78.00 Pure hypercholesterolemia, unspecified; F17.290 Nicotine dependence, other tobacco product, uncomplicated; Z98.1 Arthrodesis status; Z95.5 Presence of coronary angioplasty implant and graft; I25.2 Old myocardial infarction; Z79.02 Long term (current) use of antithrombotics/antiplatelets; Z79.82 Long term (current) use of aspirin; Z79.4 Long term (current) use of insulin; Z79.899 Other long term (current) drug therapy; Z88.5 Allergy status to narcotic agent; Z88.0 Allergy status to penicillin; Z88.8 Allergy status to other drugs, medicaments and biological substances; Z91.041 Radiographic dye allergy status; Z91.040 Latex allergy status; Z82.49 Family history of ischemic heart disease and other diseases of the circulatory system

== ENCOUNTER 2019-03-03 16:10 | Emergency (ER) | payer MEDICAID ==
[~2019-03-03] VITALS: Ht 177.8 cm; Wt 66.0 kg
[2019-03-03 17:08] LABS: ABSOLUTE EOSINOPHILS 0.3 thou/uL (0.0-0.7); ABSOLUTE LYMPHOCYTES 2.1 thou/uL (0.8-5.3); ABSOLUTE MONOCYTES 0.3 thou/uL (0.0-1.2); BASOPHILS 0.4 %; EOSINOPHILS 3.8 %; HEMATOCRIT 36.7 % (42.0-52.0); HEMOGLOBIN 11.6 gm/dL (14.0-18.0); LYMPHOCYTES 31.6 %; MCH 23.4 pg (26.0-34.0); MCHC 31.5 g/dL (28.0-37.0); MCV 74.2 fL (80.0-100.0); MONOCYTES 4.4 %; MPV 7.4 fl. (7.2-11.1); NUCLEATED RBCS 0 /100WBC; PLATELET COUNT* 418 thou/uL (150-400); POLYS 59.8 %; RBC 4.95 mil/uL (4.50-6.00); RDW-CV 20.9 % (10.5-14.5); WBC 6.8 thou/uL (4.0-11.0)
[2019-03-03 17:15] LABS: PROTIME 10.2 Seconds (9.20-11.50)
[2019-03-03 17:18] LABS: ANION GAP 10 mmol/L (7-16); BUN 7 mg/dL (7-18); CALCIUM 9.2 mg/dL (8.5-10.1); CHLORIDE 99 mmol/L (98-107); CO2 27 mmol/L (21-32); CREATININE 0.9 mg/dL (0.6-1.3); GLUCOSE 364 mg/dL (70-99); POTASSIUM 3.9 mmol/L (3.5-5.1); SODIUM 136 mmol/L (136-145)
[2019-03-03 17:35] LABS: ALBUMIN 3.1 g/dL (3.4-5.0); ALKALINE PHOSPHATASE 115 U/L (46-116); LIPASE 84 U/L (73-393); NT-PRO BRAIN NAT PEPTIDE 1070 pg/mL (<300); SGOT 10 U/L (15-37); SGPT 18 U/L (30-65); TOTAL PROTEIN 6.5 g/dL (6.4-8.2); TROPONIN-I LEVEL <0.06 ng/mL (<0.06)
[2019-03-03 17:36] LABS: TOTAL BILIRUBIN < 0.1 mg/dL (<0.1-1.0)
[2019-03-03 17:44] LABS: ANISOCYTOSIS 1+; PLATELET ESTIMATE INCREASED; POIKILOCYTOSIS 1+
[2019-03-03 17:45] LABS: MICROCYTES 1+
[2019-03-03 17:58] VITALS: BP 111/66
--- NOTE | 2019-03-04 11:07 | EKG ---
[place] [address] ELECTROCARDIOGRAM REPORT Name: KAMRYN MCNALLY Room: [facility]#: [id number] Admission: 03/03/19 Attend Phys: Discharge: 03/03/19 Date of : 53 Report #: [id number] THIS REPORT FOR: //name// [facility] ED Test Date: 2019-03-03 Test Time: 16:13:29 Pat Name: KAMRYN MCNALLY Department: Room: Gender: M Dynamo Repairer: VAN : 1955 Requested By: Sherly Cruz Order Number: [id number] MD: Nam Mora Measurements Intervals [place] Rate: 81 P: 74 SD: 180 QRS: -8 QRSD: 147 T: 166 QT: 425 QTc: 494 Interpretive Statements Sinus rhythm Left bundle branch block Compared to ECG 01/28/2019 00:26:46 Left bundle-branch block now present Ventricular premature complex(es) no longer present Intraventricular conduction delay no longer present Left ventricular hypertrophy no longer present Q waves no longer present Electronically Signed On 03-04-2019 11:07:10 CDT by Nam Mora [email or web address] <ELECTRONICALLY SIGNED> By: Nam Mora MD, FACC 03/04/19 1107 1613 1613 Nam Mora MD, FAC /EPI
== END 2019-03-03 17:58 | disposition left against medical advice (07) ==
LOC: M.ERS 16:10
PROVIDERS: Personal Emergency Response Attendant
DX: R07.89 Other chest pain (principal); F17.210 Nicotine dependence, cigarettes, uncomplicated; E11.9 Type 2 diabetes mellitus without complications; E78.00 Pure hypercholesterolemia, unspecified; I25.10 Atherosclerotic heart disease of native coronary artery without angina pectoris; E78.5 Hyperlipidemia, unspecified; J44.9 Chronic obstructive pulmonary disease, unspecified; I11.0 Hypertensive heart disease with heart failure; I50.30 Unspecified diastolic (congestive) heart failure; Z88.8 Allergy status to other drugs, medicaments and biological substances; Z88.5 Allergy status to narcotic agent; Z91.041 Radiographic dye allergy status; Z88.4 Allergy status to anesthetic agent; Z88.6 Allergy status to analgesic agent; Z91.040 Latex allergy status; Z88.0 Allergy status to penicillin

== ENCOUNTER 2019-05-16 12:03 | Inpatient (IN) | payer MEDICAID ==
[~2019-05-16] VITALS: Ht 177.8 cm; Wt 66.7 kg
[2019-05-16 12:13] VITALS: BP 110/74
[2019-05-16] MEDS ORDERED: SYMBICORT160 MCG/4. INH (12:18)
[2019-05-16 12:46] LABS: ABSOLUTE EOSINOPHILS 0.4 thou/uL (0.0-0.7); ABSOLUTE LYMPHOCYTES 1.8 thou/uL (0.8-5.3); ABSOLUTE MONOCYTES 0.4 thou/uL (0.0-1.2); ABSOLUTE NEUTROPHILS 5.6 thou/uL (1.6-8.1); BASOPHILS 0.1 %; EOSINOPHILS 4.5 %; HEMATOCRIT 32.3 % (42.0-52.0); HEMOGLOBIN 10.1 gm/dL (14.0-18.0); LYMPHOCYTES 22.5 %; MCH 22.9 pg (26.0-34.0); MCHC 31.1 g/dL (28.0-37.0); MCV 73.7 fL (80.0-100.0); MONOCYTES 4.5 %; MPV 7.2 fl. (7.2-11.1); NUCLEATED RBCS 0 /100WBC; PLATELET COUNT* 452 thou/uL (150-400); POLYS 68.4 %; RBC 4.39 mil/uL (4.50-6.00); RDW-CV 18.8 % (10.5-14.5); WBC 8.2 thou/uL (4.0-11.0)
[2019-05-16 12:54] LABS: CALCIUM 8.8 mg/dL (8.5-10.1); CREATININE 0.8 mg/dL (0.6-1.3); POTASSIUM 3.9 mmol/L (3.5-5.1)
[2019-05-16 12:57] LABS: INR 1.1; PROTIME 10.8 Seconds (9.20-11.50)
[2019-05-16 13:04] LABS: ALBUMIN 2.9 g/dL (3.4-5.0); TOTAL BILIRUBIN 0.2 mg/dL (<0.1-1.0); TOTAL PROTEIN 6.6 g/dL (6.4-8.2)
[2019-05-16 13:49] LABS: ANISOCYTOSIS 2+; HYPOCHROMASIA 1+; MICROCYTES 1+
--- NOTE | 2019-05-16 15:18 | EKG ---
[place] [address] ELECTROCARDIOGRAM REPORT Name: KAMRYN MCNALLY Room: [place] [address] ADM IN .R.#: [id number] Admission: 05/16/19 Attend Phys: Morales Santos Discharge: Date of : 53 Report #: [id number] THIS REPORT FOR: //name// [facility] ED Test Date: 2019-05-16 Test Time: 12:07:43 Pat Name: KAMRYN MCNALLY Department: Room: [facility] Gender: M Surveillance System Monitor: : 1955 Requested By: Sherly Cruz Order Number: [id number] MD: Julio Olivia Measurements Intervals [place] Rate: 94 P: 76 [place]: 193 QRS: -59 QRSD: 134 T: 111 QT: 411 QTc: 515 Interpretive Statements Sinus rhythm Left bundle branch block Compared to ECG 03/03/2019 16:13:29 No significant changes Electronically Signed On 05-16-2019 15:17:43 PLANNING ADVISOR by Julio Olivia [email or web address] <ELECTRONICALLY SIGNED> By: Julio Olivia MD, [facility] 05/16/19 1517 120 06 Julio Olivia MD, FACC /EPI
[2019-05-16 15:32] VITALS: BP 158/76
[2019-05-16 16:00] VITALS: BP 125/56
== END 2019-05-16 17:20 | disposition left against medical advice (07) | DRG 302 ==
LOC: M.ERS 12:03 → M.TBA-ER 15:01 → M.2W 15:45
PROVIDERS: Personal Emergency Response Attendant; ADMIT Internal Medicine
DX: I25.110 Atherosclerotic heart disease of native coronary artery with unstable angina pectoris (principal); I50.33 Acute on chronic diastolic (congestive) heart failure; E78.00 Pure hypercholesterolemia, unspecified; E78.5 Hyperlipidemia, unspecified; J44.9 Chronic obstructive pulmonary disease, unspecified; I11.0 Hypertensive heart disease with heart failure; E11.51 Type 2 diabetes mellitus with diabetic peripheral angiopathy without gangrene; F17.210 Nicotine dependence, cigarettes, uncomplicated; I44.7 Left bundle-branch block, unspecified; Z53.29 Procedure and treatment not carried out because of patient's decision for other reasons; I25.2 Old myocardial infarction; Z88.0 Allergy status to penicillin; Z88.8 Allergy status to other drugs, medicaments and biological substances; Z91.041 Radiographic dye allergy status; Z91.040 Latex allergy status; Z79.899 Other long term (current) drug therapy; Z79.82 Long term (current) use of aspirin; Z79.4 Long term (current) use of insulin; Z98.1 Arthrodesis status; Z95.5 Presence of coronary angioplasty implant and graft; Z82.49 Family history of ischemic heart disease and other diseases of the circulatory system; Z86.711 Personal history of pulmonary embolism; Z89.422 Acquired absence of other left toe(s); Z91.14 Patient's other noncompliance with medication regimen

== ENCOUNTER 2019-05-30 12:20 | Emergency (ER) | payer MEDICAID ==
[~2019-05-30] VITALS: Ht 177.8 cm; Wt 68.0 kg
[~2019-05-30 12:20] MED LIST changes: +SYMBICORT160 MCG/4. INH
[2019-05-30 13:40] VITALS: BP 125/63
--- NOTE | 2019-06-02 15:01 | EKG ---
[place] [address] ELECTROCARDIOGRAM REPORT Name: KAMRYN MCNALLY [facility] [id number] Admission: 05/30/19 Attend Phys: Discharge: 05/30/19 Date of : 53 Report #: [id number] THIS REPORT FOR: //name// [facility] ED Test Date: 2019-05-30 Test Time: 12:24:46 Pat Name: KAMRYN MNCALLY Department: Room: Gender: M Printed Circuit Board Assembly Repairer: VAN : 1955 Requested By: Sherly Cruz Order Number: [id number] Helen MD: Austin Jones Measurements Intervals [place] Rate: 93 P: 77 [place]: 179 QRS: -47 QRSD: 137 T: 142 QT: 403 QTc: 502 Interpretive Statements Sinus rhythm Left bundle branch block Compared to ECG 05/16/2019 12:07:43 No significant changes Electronically Signed On 06-02-2019 15:01:01 ADMISSIONS SPECIALIST by Austin Jones [email or web address] <ELECTRONICALLY SIGNED> By: Austin Jones MD, [facility] 06/02/19 1501 1224 1224 Austin Jones MD, FACC /EPI
== END 2019-05-30 13:40 | disposition left against medical advice (07) ==
LOC: M.ERS 12:20
DX: R07.9 Chest pain, unspecified (principal); R06.02 Shortness of breath; F17.210 Nicotine dependence, cigarettes, uncomplicated; E11.9 Type 2 diabetes mellitus without complications; J44.9 Chronic obstructive pulmonary disease, unspecified; E78.00 Pure hypercholesterolemia, unspecified; E78.5 Hyperlipidemia, unspecified; I11.0 Hypertensive heart disease with heart failure; I50.32 Chronic diastolic (congestive) heart failure; I25.10 Atherosclerotic heart disease of native coronary artery without angina pectoris; I71.4 Abdominal aortic aneurysm, without rupture; Z88.5 Allergy status to narcotic agent; Z88.0 Allergy status to penicillin; Z88.8 Allergy status to other drugs, medicaments and biological substances; Z91.040 Latex allergy status; Z79.82 Long term (current) use of aspirin; Z79.4 Long term (current) use of insulin

== ENCOUNTER 2019-07-03 12:02 | Inpatient (IN) | payer MEDICAID ==
[~2019-07-03] VITALS: Ht 177.8 cm; Wt 65.8 kg
--- NOTE | ~2019-07-03 | EKG ---
[place] [address] ELECTROCARDIOGRAM REPORT Name: KAMRYN MCNALLY Room: [facility]#: [id number] Admission: 07/03/19 Attend Phys: Discharge: Date of : 53 Date of Service: 07/03/19 1208 Report #: [id number] THIS REPORT FOR: cc: KARLI - No family physician/PCP FAM - No family physician/PCP Walt Godoy MD ~ THIS REPORT FOR: //name// [facility] ED Test Date: 2019-07-03 Test Time: 12:08:41 Pat Name: KAMRYN MCNALLY Department: Room: Gender: M Cctv Technician: CHANEL : 1955 Requested By: Reno Chiang Order Number: [id number] MD: Measurements Intervals [place] Rate: 87 P: 80 [place]: 179 QRS: -11 QRSD: 132 T: 151 QT: 408 QTc: 491 Interpretive Statements Sinus rhythm IVCD, consider atypical LBBB Compared to ECG 05/30/2019 12:24:46 No significant changes [email or web address] By: 1208 1208 [facility]
[2019-07-03 12:07] VITALS: BP 135/52
[2019-07-03 12:23] LABS: ABSOLUTE BASOPHILS 0.1 thou/uL (0.0-0.2); ABSOLUTE EOSINOPHILS 0.4 thou/uL (0.0-0.7); ABSOLUTE LYMPHOCYTES 2.6 thou/uL (0.8-5.3); ABSOLUTE MONOCYTES 0.5 thou/uL (0.0-1.2); BASOPHILS 1.1 %; EOSINOPHILS 6.8 %; HEMATOCRIT 29.6 % (42.0-52.0); HEMOGLOBIN 9.4 gm/dL (14.0-18.0); LYMPHOCYTES 39.7 %; MCH 21.4 pg (26.0-34.0); MCHC 31.6 g/dL (28.0-37.0); MCV 67.7 fL (80.0-100.0); MONOCYTES 7.6 %; NUCLEATED RBCS 0 /100WBC; PLATELET COUNT* 492 thou/uL (150-400); POLYS 44.8 %; RBC 4.38 mil/uL (4.50-6.00); RDW-CV 17.8 % (10.5-14.5); WBC 6.6 thou/uL (4.0-11.0)
[2019-07-03 12:33] LABS: CALCIUM 8.2 mg/dL (8.5-10.1); CREATININE 0.7 mg/dL (0.6-1.3); POTASSIUM 4.2 mmol/L (3.5-5.1)
[2019-07-03 12:34] LABS: APTT 23.8 Seconds (25.0-31.3); INR 1.1; PROTIME 10.9 Seconds (9.20-11.50)
[2019-07-03 12:44] LABS: ALBUMIN 3.1 g/dL (3.4-5.0); MAGNESIUM 1.4 mg/dL (1.8-2.4); TOTAL BILIRUBIN 0.2 mg/dL (<0.1-1.0); TOTAL PROTEIN 6.6 g/dL (6.4-8.2)
[2019-07-03 14:54] VITALS: BP 130/63
== END 2019-07-03 17:30 | disposition left against medical advice (07) | DRG 293 ==
LOC: M.ERS 12:02 → M.TBA-ER 13:36 → M.2W 15:15
PROVIDERS: Emergency Medicine Emergency Medical Services; ADMIT Internal Medicine
DX: I11.0 Hypertensive heart disease with heart failure (principal); I25.10 Atherosclerotic heart disease of native coronary artery without angina pectoris; I50.33 Acute on chronic diastolic (congestive) heart failure; E11.9 Type 2 diabetes mellitus without complications; E78.5 Hyperlipidemia, unspecified; F17.210 Nicotine dependence, cigarettes, uncomplicated; J44.9 Chronic obstructive pulmonary disease, unspecified; Z53.29 Procedure and treatment not carried out because of patient's decision for other reasons; E78.00 Pure hypercholesterolemia, unspecified; Z95.5 Presence of coronary angioplasty implant and graft; I25.2 Old myocardial infarction; Z89.429 Acquired absence of other toe(s), unspecified side; Z88.0 Allergy status to penicillin; Z88.8 Allergy status to other drugs, medicaments and biological substances; Z88.6 Allergy status to analgesic agent; Z91.041 Radiographic dye allergy status; Z91.040 Latex allergy status; Z82.49 Family history of ischemic heart disease and other diseases of the circulatory system

== ENCOUNTER 2019-07-30 12:30 | Emergency (ER) | payer MEDICAID ==
[~2019-07-30] VITALS: Ht 177.8 cm; Wt 72.6 kg
[2019-07-30 13:03] LABS: ABSOLUTE BASOPHILS 0.2 thou/uL (0.0-0.2); ABSOLUTE EOSINOPHILS 0.1 thou/uL (0.0-0.7); ABSOLUTE LYMPHOCYTES 1.7 thou/uL (0.8-5.3); ABSOLUTE MONOCYTES 0.4 thou/uL (0.0-1.2); ABSOLUTE NEUTROPHILS 7.9 thou/uL (1.6-8.1); BASOPHILS 1.7 %; EOSINOPHILS 1.2 %; HEMOGLOBIN 9.5 gm/dL (14.0-18.0); LYMPHOCYTES 16.5 %; MCH 20.3 pg (26.0-34.0); MCHC 30.7 g/dL (28.0-37.0); MCV 66.2 fL (80.0-100.0); MONOCYTES 3.8 %; MPV 7.2 fl. (7.2-11.1); NUCLEATED RBCS 0 /100WBC; PLATELET COUNT* 511 thou/uL (150-400); POLYS 76.8 %; RBC 4.69 mil/uL (4.50-6.00); RDW-CV 18.4 % (10.5-14.5); WBC 10.3 thou/uL (4.0-11.0)
[2019-07-30 13:09] LABS: APTT 23.6 Seconds (25.0-31.3); PROTIME 10.6 Seconds (9.20-11.50)
[2019-07-30 13:13] LABS: CALCIUM 8.1 mg/dL (8.5-10.1); CREATININE 0.8 mg/dL (0.6-1.3); POTASSIUM 3.5 mmol/L (3.5-5.1)
[2019-07-30 13:20] LABS: ANISOCYTOSIS 2+; HYPOCHROMASIA 2+; MICROCYTES 2+; PLATELET ESTIMATE INCREASED
[2019-07-30 13:21] LABS: OVALOCYTES 1+; POIKILOCYTOSIS 1+
[2019-07-30 13:24] LABS: ALBUMIN 3.1 g/dL (3.4-5.0); CK-MB MASS 6.4 ng/mL (<0.5-3.6); MAGNESIUM 1.4 mg/dL (1.8-2.4); TOTAL BILIRUBIN 0.2 mg/dL (<0.1-1.0); TOTAL PROTEIN 6.3 g/dL (6.4-8.2)
[2019-07-30 13:37] VITALS: BP 108/56
--- NOTE | 2019-07-30 16:52 | EKG ---
[place] [address] ELECTROCARDIOGRAM REPORT Name: KAMRYN MCNALLY Room: [facility]#: [id number] Admission: 07/30/19 Attend Phys: Discharge: 07/30/19 Date of : 53 Date of Service: 07/30/19 1235 Report #: [id number] THIS REPORT FOR: //name// [facility] ED Test Date: 2019-07-30 Test Time: 12:35:42 Pat Name: KAMRYN MCNALLY Department: Room: Gender: Fire Crew Worker: : 1955 Requested By: Presley Bahena Order Number: [id number] MD: Austin Jones Measurements Intervals [place] Rate: 90 P: 90 [place]: 191 QRS: -38 QRSD: 140 T: 117 QT: 405 QTc: 496 Interpretive Statements Sinus rhythm Left bundle branch block Baseline wander in lead(s) V5 Compared to ECG 07/03/2019 12:08:41 No significant changes Electronically Signed On 07-30-2019 16:51:06 LEHR ATTENDANT by Austin Jones [email or web address] <ELECTRONICALLY SIGNED> By: Austin Jones MD, [facility] 07/30/19 1651 1235 1235 Austin Jones MD, [facility] /EPI
== END 2019-07-30 13:40 | disposition home or self-care (01) ==
LOC: M.ERS 12:30
PROVIDERS: Family Medicine
DX: R42 Dizziness and giddiness (principal); I11.0 Hypertensive heart disease with heart failure; I50.32 Chronic diastolic (congestive) heart failure; E11.9 Type 2 diabetes mellitus without complications; E78.00 Pure hypercholesterolemia, unspecified; I25.10 Atherosclerotic heart disease of native coronary artery without angina pectoris; J44.9 Chronic obstructive pulmonary disease, unspecified; E78.5 Hyperlipidemia, unspecified; F17.210 Nicotine dependence, cigarettes, uncomplicated; Z88.0 Allergy status to penicillin; Z91.040 Latex allergy status; Z91.041 Radiographic dye allergy status; Z88.5 Allergy status to narcotic agent; Z88.8 Allergy status to other drugs, medicaments and biological substances